=== PATIENT | male | born 1965 | race African-American/Black ===

== ENCOUNTER 2021-01-28 21:01 | Inpatient (IN) | payer MEDICAID, OTHER ==
[~2021-01-28] VITALS: Ht 172.7 cm; Wt 49.9 kg
[2021-01-28 21:59] LABS: HEMATOCRIT. 38.5 % (42.0-52.0); HEMOGLOBIN. 13.1 g/dL (14.0-18.0); MEAN CORPUSCULAR HEMOGLOBIN 30.5 pg (28.0-32.0); MEAN CORPUSCULAR VOLUME 89.5 fL (80.0-94.0); MEAN PLATELET VOLUME 5.3 fl (7.4-10.4); PLATELET 360 x1000/uL (130-400); RED CELL DISTRIBUTION WIDTH 15.6 % (11.6-14.6)
[2021-01-28 22:01] LABS: BG CARBOXYHEMOGLOBIN 0.9 % (0.5-1.5); BG DEOXYHEMOGLOBIN 4.4 % (0.0-5.0); BG FRACTION INSPIRED OXYGEN 21; BG HCO3 ACT 28.5 mmol/L (22.0-26.0); BG METHEMOGLOBIN 0.2 % (0.0-1.5); BG OXYGEN SATURATION 95.6 % (92.0-98.5); BG OXYHEMOGLOBIN 94.5 % (94.0-97.0); BG PCO2 46.9 mmHg (35.0-45.0); BG PH 7.402 (7.350-7.450); BG TOTAL HEMOGLOBIN 13.9 g/dL (12.0-18.0); BG VENT MODE ROOM AIR
[2021-01-28 22:06] LABS: CHLORIDE 85 mEq/L (98-107)
[2021-01-28 22:11] LABS: ETHANOL BLOOD < 10 mg/dL
[2021-01-28 22:14] LABS: CREATINE KINASE 313 IU/L (39-308)
[2021-01-28 22:35] LABS: PLATELET ESTIMATE NORMAL
[2021-01-29] VITALS (9 sets, daily range): BP systolic 114–198; BP diastolic 77–139
[2021-01-29] MEDS ORDERED: AMLODIPINE 5MG TABLET PO ONE (02:30)
[2021-01-29 03:17] LABS: CLARITY URINE CLOUDY (CLEAR); COLOR URINE YELLOW (YELLOW); KETONES URINE 1+ (NEGATIVE); LEUKOCYTE ESTERASE URINE NEGATIVE (NEGATIVE); NITRITE URINE NEGATIVE (NEGATIVE); OCCULT BLOOD URINE 2+ (NEGATIVE); PH URINE 7.5 (4.5-8.0); PROTEIN URINE 2+ (NEGATIVE); SPECIFIC GRAVITY URINE 1.012 (1.005-1.030)
[2021-01-29 03:28] LABS: *AMPHETAMINES SCREEN URINE NEGATIVE (NEGATIVE); *BARBITURATES SCREEN URINE NEGATIVE (NEGATIVE); *BENZODIAZEPINES SCREEN URINE NEGATIVE (NEGATIVE); *COCAINE SCREEN URINE NEGATIVE (NEGATIVE)
[2021-01-29 03:29] LABS: CANNABINOID URINE SCREEN NEGATIVE (NEGATIVE); METHADONE URINE SCREEN NEGATIVE (NEGATIVE); OPIATES URINE SCREEN NEGATIVE (NEGATIVE); PHENCYCLIDINE URINE SCREEN NEGATIVE (NEGATIVE)
[2021-01-29] MEDS ORDERED: CLONIDINE 0.1MG TABLET PO PRN (07:15)
[2021-01-29] MEDS: LABETALOL 5MG/ML SYR 20 MG/4 ML SYRINGE IV PRN ×2 (10:51→17:05)
[2021-01-29] MEDS ORDERED: ONDANSETRON HCL 4MG/2ML INJ IV PRN (12:00)
[2021-01-29] MEDS ORDERED: HYDROCODONE/ACETAMINOPHEN 5/325MG TABLET PO PRN (12:00)
[2021-01-29] MEDS ORDERED: IPRATROPIUM/ALBUTEROL 0.5-3(2.5)MG/3ML NEB HHN PRN (12:00)
[2021-01-29] MEDS ORDERED: ACETAMINOPHEN 325MG TABLET PO PRN ×2 (12:00)
[2021-01-29] MEDS ORDERED: LORAZEPAM 0.5MG TABLET PO PRN (12:00)
[2021-01-29 12:14] LABS: CHLORIDE 81 mEq/L (98-107)
[2021-01-29 12:19] LABS: PHOSPHORUS 3.7 mg/dL (2.5-4.9)
[2021-01-29 12:39] LABS: HEMATOCRIT. 41.9 % (42.0-52.0); MEAN CORPUSCULAR HEMOGLOBIN 30.3 pg (28.0-32.0); MEAN CORPUSCULAR VOLUME 90.3 fL (80.0-94.0); MEAN PLATELET VOLUME 5.5 fl (7.4-10.4); PLATELET 403 x1000/uL (130-400); RED BLOOD CELL COUNT 4.64 mill/uL (4.7-6.1); RED CELL DISTRIBUTION WIDTH 16.3 % (11.6-14.6)
[2021-01-29] MEDS: AMLODIPINE 5MG TABLET PO SCH (13:01)
[2021-01-29] MEDS: NICOTINE 14MG PATCH TD SCH (13:01)
[2021-01-29] MEDS ORDERED: PERMETHRIN 5% CREAM 60GM TOP NR (13:45)
[2021-01-29 14:20] LABS: FOLIC ACID (FOLATE) SERUM 14.7 ng/mL (>5.38)
[2021-01-29] MEDS: CLONIDINE 0.1MG TABLET PO PRN (17:59)
[2021-01-29 18:58] LABS: PLATELET ESTIMATE NORMAL
[2021-01-29 20:33] LABS: CHLORIDE 79 mEq/L (98-107)
[2021-01-29] MEDS: SODIUM CHLORIDE 0.9% 1,000 ML IV SCH (22:14)
[2021-01-30] VITALS (12 sets, daily range): BP systolic 130–207; BP diastolic 46–154
[2021-01-30] MEDS: LABETALOL 5MG/ML SYR 20 MG/4 ML SYRINGE IV PRN ×2 (03:39→18:35)
[2021-01-30 06:17] LABS: CHLORIDE 83 mEq/L (98-107)
[2021-01-30 06:23] LABS: HEMATOCRIT. 39.9 % (42.0-52.0); HEMOGLOBIN. 13.7 g/dL (14.0-18.0); MEAN CORPUSCULAR HEMOGLOBIN 30.5 pg (28.0-32.0); MEAN CORPUSCULAR VOLUME 88.9 fL (80.0-94.0); MEAN PLATELET VOLUME 5.8 fl (7.4-10.4); PHOSPHORUS 2.6 mg/dL (2.5-4.9); PLATELET 400 x1000/uL (130-400); RED BLOOD CELL COUNT 4.49 mill/uL (4.7-6.1)
[2021-01-30] MEDS: CLONIDINE 0.1MG TABLET PO PRN ×3 (09:01→23:15)
[2021-01-30] MEDS: AMLODIPINE 5MG TABLET PO SCH ×2 (09:01→09:31)
[2021-01-30] MEDS: NICOTINE 14MG PATCH TD SCH (09:02)
[2021-01-30] MEDS ORDERED: CLONIDINE 0.1MG TABLET PO NR (10:15)
[2021-01-30] MEDS: DEMECLOCYCLINE HCL 300MG TABLET PO SCH ×3 (12:32→21:51)
[2021-01-30 12:59] LABS: PLATELET ESTIMATE NORMAL
[2021-01-30 13:20] LABS: SODIUM URINE RANDOM 112 mEq/L
[2021-01-30] MEDS: HYDRALAZINE 20MG/ML VIAL IV PRN (15:22)
[2021-01-30] MEDS: SODIUM CHLORIDE 0.9% 1,000 ML IV SCH (17:30)
[2021-01-30] MEDS ORDERED: LABETALOL 5MG/ML SYR 20 MG/4 ML SYRINGE IV NR (18:30)
[2021-01-30] MEDS: LEVETIRACETAM 500MG PREMIX 100 ML IV SCH (18:53)
[2021-01-31] VITALS (10 sets, daily range): BP systolic 133–182; BP diastolic 82–124
[2021-01-31] MEDS: HYDRALAZINE 20MG/ML VIAL IV PRN ×3 (03:54→10:16)
[2021-01-31] MEDS: DEMECLOCYCLINE HCL 300MG TABLET PO SCH ×4 (06:55→22:49)
[2021-01-31 08:37] LABS: HEMATOCRIT. 43.8 % (42.0-52.0); MEAN CORPUSCULAR HEMOGLOBIN 29.1 pg (28.0-32.0); MEAN CORPUSCULAR VOLUME 90.9 fL (80.0-94.0); MEAN PLATELET VOLUME 5.6 fl (7.4-10.4); PLATELET 424 x1000/uL (130-400); RED BLOOD CELL COUNT 4.82 mill/uL (4.7-6.1); RED CELL DISTRIBUTION WIDTH 16.1 % (11.6-14.6)
[2021-01-31 08:43] LABS: CHLORIDE 87 mEq/L (98-107)
[2021-01-31 08:48] LABS: PHOSPHORUS 2.3 mg/dL (2.5-4.9)
[2021-01-31] MEDS: THIAMINE HCL 100MG TABLET PO SCH (09:01)
[2021-01-31] MEDS: LEVETIRACETAM 500MG PREMIX 100 ML IV SCH ×2 (09:01→22:50)
[2021-01-31] MEDS: FOLIC ACID 1MG TABLET PO SCH (09:01)
[2021-01-31] MEDS: AMLODIPINE 5MG TABLET PO SCH (09:01)
[2021-01-31] MEDS: MULTIVITAMINS,THER W-MINERALS TABLET PO SCH (09:01)
[2021-01-31] MEDS: NICOTINE 14MG PATCH TD SCH (09:02)
[2021-01-31] MEDS ORDERED: SODIUM PHOS,M-BASIC-D-BASIC 30 MM in DEXT 5% WATER 500 ML IV SCH (11:00)
[2021-01-31 14:48] LABS: PLATELET ESTIMATE INCREASED
[2021-01-31 19:10] LABS: CHLORIDE 88 mEq/L (98-107)
[2021-02-01] VITALS (7 sets, daily range): BP systolic 120–170; BP diastolic 92–122
[2021-02-01] MEDS: DEMECLOCYCLINE HCL 300MG TABLET PO SCH (07:01)
[2021-02-01 07:29] LABS: HEMATOCRIT. 42.4 % (42.0-52.0); HEMOGLOBIN. 14.3 g/dL (14.0-18.0); MEAN CORPUSCULAR HEMOGLOBIN 30.6 pg (28.0-32.0); MEAN CORPUSCULAR VOLUME 90.8 fL (80.0-94.0); MEAN PLATELET VOLUME 5.8 fl (7.4-10.4); PLATELET 412 x1000/uL (130-400); RED BLOOD CELL COUNT 4.67 mill/uL (4.7-6.1); RED CELL DISTRIBUTION WIDTH 16.4 % (11.6-14.6)
[2021-02-01 08:22] LABS: CHLORIDE 86 mEq/L (98-107)
[2021-02-01 08:37] LABS: PHOSPHORUS 3.1 mg/dL (2.5-4.9)
[2021-02-01] MEDS ORDERED: SODIUM CHLORIDE 3% 500 ML IV ONE (10:00)
[2021-02-01] MEDS: CLONIDINE HCL 0.1MG/24HR PATCH TD SCH (10:00)
[2021-02-01] MEDS: AMLODIPINE 5MG TABLET PO SCH (10:51)
[2021-02-01] MEDS: NICOTINE 14MG PATCH TD SCH (10:51)
[2021-02-01] MEDS: THIAMINE HCL 100MG TABLET PO SCH (10:52)
[2021-02-01] MEDS: MULTIVITAMINS,THER W-MINERALS TABLET PO SCH (10:52)
[2021-02-01] MEDS: FOLIC ACID 1MG TABLET PO SCH (10:52)
[2021-02-01] MEDS: LEVETIRACETAM 500MG PREMIX 100 ML IV SCH ×2 (11:02→21:00)
[2021-02-01 15:56] LABS: CHLORIDE 87 mEq/L (98-107)
[2021-02-01 22:01] LABS: PLATELET ESTIMATE SLIGHTLY INCREASED
[2021-02-02] VITALS (10 sets, daily range): BP systolic 136–179; BP diastolic 98–121
[2021-02-02] MEDS: LORAZEPAM 2MG/ML CPJ IV PRN ×2 (03:39→03:47)
[2021-02-02 05:58] LABS: CHLORIDE 92 mEq/L (98-107)
[2021-02-02 06:00] LABS: BASOPHILS % 0.3 % (0.0-2.0); EOSINOPHILS % 1.1 % (0.0-5.0); HEMATOCRIT. 37.8 % (42.0-52.0); HEMOGLOBIN. 12.6 g/dL (14.0-18.0); LYMPHOCYTES % 8.3 % (20.0-50.0); MEAN CORPUSCULAR HEMOGLOBIN 30.4 pg (28.0-32.0); MEAN CORPUSCULAR VOLUME 91.2 fL (80.0-94.0); MEAN PLATELET VOLUME 5.9 fl (7.4-10.4); MONOCYTES % 12.1 % (2.0-8.0); NEUTROPHILS % 78.2 % (40.0-76.0); PLATELET 404 x1000/uL (130-400); RED BLOOD CELL COUNT 4.15 mill/uL (4.7-6.1); RED CELL DISTRIBUTION WIDTH 15.9 % (11.6-14.6)
[2021-02-02 06:05] LABS: PHOSPHORUS 2.6 mg/dL (2.5-4.9)
[2021-02-02] MEDS: LEVETIRACETAM 500MG PREMIX 100 ML IV SCH ×2 (09:33→21:40)
[2021-02-02] MEDS: FOLIC ACID 1MG TABLET PO SCH (09:34)
[2021-02-02] MEDS: MULTIVITAMINS,THER W-MINERALS TABLET PO SCH (09:34)
[2021-02-02] MEDS: AMLODIPINE 5MG TABLET PO SCH (09:34)
[2021-02-02] MEDS: NICOTINE 14MG PATCH TD SCH (09:34)
[2021-02-02] MEDS: THIAMINE HCL 100MG TABLET PO SCH (09:34)
[2021-02-02] MEDS: SODIUM CHLORIDE 3% 500 ML IV SCH (11:17)
[2021-02-02] MEDS: CLONIDINE 0.1MG TABLET PO PRN (23:58)
[2021-02-03] VITALS (12 sets, daily range): BP systolic 125–171; BP diastolic 96–130
[2021-02-03] MEDS: SODIUM CHLORIDE 3% 500 ML IV SCH ×2 (03:04→20:09)
[2021-02-03 05:35] LABS: CHLORIDE 94 mEq/L (98-107)
[2021-02-03 05:49] LABS: PHOSPHORUS 2.2 mg/dL (2.5-4.9)
[2021-02-03 06:23] LABS: BASOPHILS % 0.4 % (0.0-2.0); EOSINOPHILS % 0.8 % (0.0-5.0); HEMATOCRIT. 36.2 % (42.0-52.0); LYMPHOCYTES % 10.4 % (20.0-50.0); MEAN CORPUSCULAR HEMOGLOBIN 29.9 pg (28.0-32.0); MEAN PLATELET VOLUME 5.8 fl (7.4-10.4); MONOCYTES % 12.2 % (2.0-8.0); NEUTROPHILS % 76.2 % (40.0-76.0); PLATELET 449 x1000/uL (130-400); RED BLOOD CELL COUNT 4.02 mill/uL (4.7-6.1); RED CELL DISTRIBUTION WIDTH 15.9 % (11.6-14.6)
[2021-02-03] MEDS: FOLIC ACID 1MG TABLET PO SCH ×2 (09:00→10:23)
[2021-02-03] MEDS: MULTIVITAMINS,THER W-MINERALS TABLET PO SCH ×2 (09:00→10:24)
[2021-02-03] MEDS: LEVETIRACETAM 500MG PREMIX 100 ML IV SCH ×2 (10:12→20:07)
[2021-02-03] MEDS: NICOTINE 14MG PATCH TD SCH (10:24)
[2021-02-03] MEDS: METOPROLOL TARTRATE 25MG TABLET PO SCH ×2 (10:25→20:06)
[2021-02-03] MEDS: THIAMINE HCL 100MG TABLET PO SCH (10:40)
[2021-02-03] MEDS ORDERED: SODIUM PHOS,M-BASIC-D-BASIC 15 MM in DEXT 5% WATER 245 ML IV NR (11:00)
[2021-02-03] MEDS: LORAZEPAM 2MG/ML CPJ IV PRN ×2 (15:50→23:26)
[2021-02-03 18:35] LABS: CHLORIDE 97 mEq/L (98-107)
[2021-02-03] MEDS: AMLODIPINE 5MG TABLET PO SCH (20:06)
[2021-02-03] MEDS: HYDRALAZINE 20MG/ML VIAL IV PRN (23:26)
[2021-02-04] VITALS (17 sets, daily range): BP systolic 129–159; BP diastolic 56–106
[2021-02-04 06:50] LABS: CHLORIDE 97 mEq/L (98-107)
[2021-02-04 06:58] LABS: BASOPHILS % 0.4 % (0.0-2.0); EOSINOPHILS % 1.3 % (0.0-5.0); HEMATOCRIT. 31.1 % (42.0-52.0); HEMOGLOBIN. 10.7 g/dL (14.0-18.0); LYMPHOCYTES % 9.6 % (20.0-50.0); MEAN CORPUSCULAR VOLUME 90.1 fL (80.0-94.0); MEAN PLATELET VOLUME 5.7 fl (7.4-10.4); MONOCYTES % 12.9 % (2.0-8.0); NEUTROPHILS % 75.8 % (40.0-76.0); PLATELET 384 x1000/uL (130-400); RED BLOOD CELL COUNT 3.45 mill/uL (4.7-6.1); RED CELL DISTRIBUTION WIDTH 15.9 % (11.6-14.6)
[2021-02-04] MEDS: THIAMINE HCL 100MG TABLET PO SCH (09:11)
[2021-02-04] MEDS: FOLIC ACID 1MG TABLET PO SCH (09:11)
[2021-02-04] MEDS: METOPROLOL TARTRATE 25MG TABLET PO SCH (09:11)
[2021-02-04] MEDS: MULTIVITAMINS,THER W-MINERALS TABLET PO SCH (09:11)
[2021-02-04] MEDS: LEVETIRACETAM 500MG PREMIX 100 ML IV SCH (09:12)
[2021-02-04] MEDS: NICOTINE 14MG PATCH TD SCH (09:12)
[2021-02-04] MEDS: AMLODIPINE 5MG TABLET PO SCH ×2 (09:12→20:12)
[2021-02-04] MEDS ORDERED: POTASSIUM CHLORIDE 20MEQ TABLET SR PO NR (10:30)
[2021-02-04] MEDS ORDERED: POTASSIUM PHOS,M-BASIC-D-BASIC 20 MMOL in SODIUM CHLORIDE 0.9% 250 ML IV SCH (13:00)
[2021-02-04] MEDS: SODIUM CHLORIDE 3% 500 ML IV SCH (14:36)
[2021-02-04] MEDS: LEVETIRACETAM 500MG TABLET PO SCH (20:12)
[2021-02-04] MEDS: METOPROLOL TARTRATE 50MG TABLET PO SCH (20:12)
[2021-02-05] VITALS (12 sets, daily range): BP systolic 125–155; BP diastolic 64–105
[2021-02-05 06:51] LABS: BASOPHILS % 0.5 % (0.0-2.0); EOSINOPHILS % 2.4 % (0.0-5.0); HEMATOCRIT. 31.3 % (42.0-52.0); HEMOGLOBIN. 10.6 g/dL (14.0-18.0); LYMPHOCYTES % 11.5 % (20.0-50.0); MEAN CORPUSCULAR HEMOGLOBIN 30.3 pg (28.0-32.0); MEAN CORPUSCULAR VOLUME 89.8 fL (80.0-94.0); MEAN PLATELET VOLUME 5.8 fl (7.4-10.4); MONOCYTES % 11.8 % (2.0-8.0); NEUTROPHILS % 73.8 % (40.0-76.0); PLATELET 435 x1000/uL (130-400); RED BLOOD CELL COUNT 3.48 mill/uL (4.7-6.1); RED CELL DISTRIBUTION WIDTH 16.1 % (11.6-14.6)
[2021-02-05 06:52] LABS: CHLORIDE 100 mEq/L (98-107)
[2021-02-05 07:04] LABS: PHOSPHORUS 2.9 mg/dL (2.5-4.9)
[2021-02-05] MEDS: MULTIVITAMINS,THER W-MINERALS TABLET PO SCH (09:19)
[2021-02-05] MEDS: THIAMINE HCL 100MG TABLET PO SCH (09:19)
[2021-02-05] MEDS: NICOTINE 14MG PATCH TD SCH (09:19)
[2021-02-05] MEDS: METOPROLOL TARTRATE 50MG TABLET PO SCH ×2 (09:20→20:06)
[2021-02-05] MEDS: FOLIC ACID 1MG TABLET PO SCH (09:20)
[2021-02-05] MEDS: LEVETIRACETAM 500MG TABLET PO SCH ×2 (09:20→20:06)
[2021-02-05] MEDS: AMLODIPINE 5MG TABLET PO SCH ×2 (09:21→20:07)
[2021-02-05] MEDS: HYDRALAZINE HCL 25MG TABLET PO SCH ×2 (13:57→20:07)
[2021-02-06] VITALS (15 sets, daily range): BP systolic 99–160; BP diastolic 64–109
[2021-02-06 06:31] LABS: BASOPHILS % 0.3 % (0.0-2.0); EOSINOPHILS % 1.7 % (0.0-5.0); HEMATOCRIT. 34.3 % (42.0-52.0); HEMOGLOBIN. 11.5 g/dL (14.0-18.0); MEAN CORPUSCULAR HEMOGLOBIN 30.2 pg (28.0-32.0); MEAN CORPUSCULAR VOLUME 89.8 fL (80.0-94.0); MONOCYTES % 9.9 % (2.0-8.0); NEUTROPHILS % 78.1 % (40.0-76.0); PLATELET 488 x1000/uL (130-400); RED BLOOD CELL COUNT 3.82 mill/uL (4.7-6.1); RED CELL DISTRIBUTION WIDTH 16.2 % (11.6-14.6)
[2021-02-06 07:09] LABS: CHLORIDE 94 mEq/L (98-107)
[2021-02-06 07:19] LABS: PHOSPHORUS 2.7 mg/dL (2.5-4.9)
[2021-02-06] MEDS: MULTIVITAMINS,THER W-MINERALS TABLET PO SCH (08:30)
[2021-02-06] MEDS: AMLODIPINE 5MG TABLET PO SCH ×2 (08:30→21:12)
[2021-02-06] MEDS: LEVETIRACETAM 500MG TABLET PO SCH ×2 (08:30→21:11)
[2021-02-06] MEDS: NICOTINE 14MG PATCH TD SCH (08:30)
[2021-02-06] MEDS: THIAMINE HCL 100MG TABLET PO SCH (08:30)
[2021-02-06] MEDS: HYDRALAZINE HCL 25MG TABLET PO SCH ×2 (08:31→21:11)
[2021-02-06] MEDS: METOPROLOL TARTRATE 50MG TABLET PO SCH ×2 (08:31→21:11)
[2021-02-06] MEDS: FOLIC ACID 1MG TABLET PO SCH (08:32)
[2021-02-06] MEDS: SODIUM CHLORIDE 1000MG TABLET PO SCH ×2 (09:50→21:11)
[2021-02-07] VITALS (15 sets, daily range): BP systolic 91–181; BP diastolic 40–146
[2021-02-07] MEDS: LABETALOL 5MG/ML SYR 20 MG/4 ML SYRINGE IV PRN (04:23)
[2021-02-07 07:07] LABS: BASOPHILS % 0.7 % (0.0-2.0); EOSINOPHILS % 2.2 % (0.0-5.0); HEMOGLOBIN. 10.3 g/dL (14.0-18.0); LYMPHOCYTES % 7.5 % (20.0-50.0); MEAN CORPUSCULAR HEMOGLOBIN 30.9 pg (28.0-32.0); MEAN CORPUSCULAR VOLUME 90.1 fL (80.0-94.0); MEAN PLATELET VOLUME 5.8 fl (7.4-10.4); MONOCYTES % 10.2 % (2.0-8.0); NEUTROPHILS % 79.4 % (40.0-76.0); PLATELET 454 x1000/uL (130-400); RED BLOOD CELL COUNT 3.33 mill/uL (4.7-6.1)
[2021-02-07 07:23] LABS: CHLORIDE 94 mEq/L (98-107)
[2021-02-07 07:30] LABS: PHOSPHORUS 2.8 mg/dL (2.5-4.9)
[2021-02-07] MEDS ORDERED: SODIUM BICARBONATE 8.4% 1 MEQ/ML 50ML SYR IV ONE (07:57)
[2021-02-07] MEDS ORDERED: EPINEPHRINE 0.1MG/ML (1:10,000) 10ML SYR ONE (07:57)
[2021-02-07] MEDS: NICOTINE 14MG PATCH TD SCH (08:28)
[2021-02-07] MEDS: LEVETIRACETAM 500MG TABLET PO SCH ×2 (08:28→21:50)
[2021-02-07] MEDS: HYDRALAZINE HCL 25MG TABLET PO SCH ×2 (08:29→21:51)
[2021-02-07] MEDS: THIAMINE HCL 100MG TABLET PO SCH (08:29)
[2021-02-07] MEDS: METOPROLOL TARTRATE 50MG TABLET PO SCH ×2 (08:29→21:50)
[2021-02-07] MEDS: AMLODIPINE 5MG TABLET PO SCH ×2 (08:29→21:51)
[2021-02-07] MEDS: FOLIC ACID 1MG TABLET PO SCH (08:30)
[2021-02-07] MEDS: SODIUM CHLORIDE 1000MG TABLET PO SCH ×2 (08:30→21:50)
[2021-02-07] MEDS: MULTIVITAMINS,THER W-MINERALS TABLET PO SCH (08:34)
[2021-02-07] MEDS ORDERED: LORAZEPAM 2MG/ML CPJ IV PRN (17:00)
[2021-02-07 23:51] LABS: BG BASE EXCESS 0.7 mmol/L (-2.0-2.0); BG CARBOXYHEMOGLOBIN 0.2 % (0.5-1.5); BG DEOXYHEMOGLOBIN 0.7 % (0.0-5.0); BG FRACTION INSPIRED OXYGEN 50; BG HCO3 ACT 25.7 mmol/L (22.0-26.0); BG METHEMOGLOBIN 0.3 % (0.0-1.5); BG OXYGEN SATURATION 99.3 % (92.0-98.5); BG OXYHEMOGLOBIN 98.8 % (94.0-97.0); BG PCO2 43.3 mmHg (35.0-45.0); BG PH 7.392 (7.350-7.450); BG PO2 289.6 mmHg (75.0-100.0); BG TOTAL HEMOGLOBIN 10.2 g/dL (12.0-18.0); BG VENT MODE VENT - AC
[2021-02-08] VITALS (95 sets, daily range): BP systolic 49–172; BP diastolic 24–131
[2021-02-08] MEDS ORDERED: MIDAZOLAM 100MG/100ML PMX 100 ML IV PRN (00:15)
[2021-02-08] MEDS ORDERED: FENTANYL CITRATE/PF 1,000 MCG in SODIUM CHLORIDE 0.9% 80 ML IV PRN (00:15)
[2021-02-08] MEDS ORDERED: PHENYLEPHRINE 100 MG in DEXT 5% WATER 240 ML IV PRN (00:15)
[2021-02-08] MEDS ORDERED: VASOPRESSIN 20 UNIT in SODIUM CHLORIDE 0.9% 99 ML IV PRN (00:15)
[2021-02-08] MEDS ORDERED: MIDAZOLAM HCL 100 MG in SODIUM CHLORIDE 0.9% 100 ML IV PRN (00:30)
[2021-02-08] MEDS ORDERED: FENTANYL CITRATE 2,500 MCG in SODIUM CHLORIDE 0.9% 200 ML IV PRN (00:30)
[2021-02-08] MEDS: NOREPINEPHRINE 32 MG in DEXT 5% WATER 218 ML IV PRN ×2 (03:00→18:35)
[2021-02-08 05:40] LABS: BASOPHILS % 0.3 % (0.0-2.0); EOSINOPHILS % 1.2 % (0.0-5.0); HEMOGLOBIN. 10.2 g/dL (14.0-18.0); LYMPHOCYTES % 7.9 % (20.0-50.0); MEAN CORPUSCULAR HEMOGLOBIN 29.9 pg (28.0-32.0); MEAN CORPUSCULAR VOLUME 90.5 fL (80.0-94.0); MEAN PLATELET VOLUME 5.9 fl (7.4-10.4); MONOCYTES % 3.7 % (2.0-8.0); NEUTROPHILS % 86.9 % (40.0-76.0); PLATELET 444 x1000/uL (130-400); RED BLOOD CELL COUNT 3.42 mill/uL (4.7-6.1); RED CELL DISTRIBUTION WIDTH 16.3 % (11.6-14.6)
[2021-02-08 05:46] LABS: CHLORIDE 104 mEq/L (98-107)
[2021-02-08 05:51] LABS: PHOSPHORUS 2.2 mg/dL (2.5-4.9)
[2021-02-08] MEDS ORDERED: PERMETHRIN 5% CREAM 60GM TOP SCH (09:00)
[2021-02-08] MEDS: HYDRALAZINE HCL 25MG TABLET PO SCH ×2 (09:00→20:21)
[2021-02-08] MEDS: AMLODIPINE 5MG TABLET PO SCH ×2 (09:00→20:21)
[2021-02-08] MEDS: CLONIDINE HCL 0.1MG/24HR PATCH TD SCH (09:00)
[2021-02-08 09:01] LABS: BG BASE EXCESS 3.6 mmol/L (-2.0-2.0); BG CARBOXYHEMOGLOBIN 0.2 % (0.5-1.5); BG DEOXYHEMOGLOBIN 1.1 % (0.0-5.0); BG FRACTION INSPIRED OXYGEN 50; BG HCO3 ACT 27.4 mmol/L (22.0-26.0); BG METHEMOGLOBIN 0.3 % (0.0-1.5); BG OXYGEN SATURATION 98.9 % (92.0-98.5); BG OXYHEMOGLOBIN 98.4 % (94.0-97.0); BG PCO2 38.2 mmHg (35.0-45.0); BG PH 7.473 (7.350-7.450); BG SAMPLE SITE ALINE; BG TOTAL HEMOGLOBIN 11.1 g/dL (12.0-18.0); BG TOTAL RESPIRATORY RATE 14 b/min; BG VENT MODE VENT - AC
[2021-02-08] MEDS ORDERED: DOPAMINE 800MG PREMIX (DOUBLE) 250 ML IV PRN (09:15)
[2021-02-08] MEDS ORDERED: LIDOCAINE HCL 1% 20ML VIAL (Pyxis) INJ ONE (10:28)
[2021-02-08] MEDS: SODIUM CHLORIDE 1000MG TABLET PO SCH ×2 (11:44→20:21)
[2021-02-08] MEDS: FOLIC ACID 1MG TABLET PO SCH (11:44)
[2021-02-08] MEDS: MULTIVITAMINS,THER W-MINERALS TABLET PO SCH (11:44)
[2021-02-08] MEDS: THIAMINE HCL 100MG TABLET PO SCH (11:44)
[2021-02-08] MEDS: NICOTINE 14MG PATCH TD SCH (11:45)
[2021-02-08] MEDS: LEVETIRACETAM 500MG TABLET PO SCH ×2 (11:45→20:20)
[2021-02-08] MEDS ORDERED: DEXTROSE 50% WATER 50ML SYRINGE IV PRN (15:00)
[2021-02-08] MEDS: BLOOD SUGAR DIAGNOSTIC STRIP TEST SCH ×2 (15:56→20:21)
[2021-02-08] MEDS: FAMOTIDINE 20MG/2ML VIAL IV SCH (20:21)
[2021-02-09] VITALS (86 sets, daily range): BP systolic 94–141; BP diastolic 67–93
[2021-02-09] MEDS: BLOOD SUGAR DIAGNOSTIC STRIP TEST SCH ×4 (03:22→21:22)
[2021-02-09 05:50] LABS: HEMATOCRIT. 32.2 % (42.0-52.0); HEMOGLOBIN. 10.4 g/dL (14.0-18.0); MEAN CORPUSCULAR HEMOGLOBIN 29.2 pg (28.0-32.0); MEAN CORPUSCULAR VOLUME 90.7 fL (80.0-94.0); MEAN PLATELET VOLUME 5.8 fl (7.4-10.4); PLATELET 409 x1000/uL (130-400); RED BLOOD CELL COUNT 3.55 mill/uL (4.7-6.1); RED CELL DISTRIBUTION WIDTH 16.3 % (11.6-14.6)
[2021-02-09 05:59] LABS: CHLORIDE 105 mEq/L (98-107)
[2021-02-09 06:09] LABS: PHOSPHORUS 4.3 mg/dL (2.5-4.9)
[2021-02-09] MEDS: FAMOTIDINE 20MG/2ML VIAL IV SCH ×2 (09:08→21:24)
[2021-02-09] MEDS: LEVETIRACETAM 500MG TABLET PO SCH ×2 (09:08→21:25)
[2021-02-09] MEDS: AMLODIPINE 5MG TABLET PO SCH ×2 (09:08→21:00)
[2021-02-09] MEDS: THIAMINE HCL 100MG TABLET PO SCH (09:08)
[2021-02-09] MEDS: FOLIC ACID 1MG TABLET PO SCH (09:08)
[2021-02-09] MEDS: SODIUM CHLORIDE 1000MG TABLET PO SCH ×2 (09:08→21:24)
[2021-02-09] MEDS: HYDRALAZINE HCL 25MG TABLET PO SCH ×2 (09:08→21:00)
[2021-02-09] MEDS: MULTIVITAMINS,THER W-MINERALS TABLET PO SCH (09:08)
[2021-02-09] MEDS: DEXT 5%/0.9% NACL 1,000 ML IV SCH (09:10)
[2021-02-09] MEDS: NICOTINE 14MG PATCH TD SCH (09:10)
[2021-02-09 11:19] LABS: BG BASE EXCESS 2.8 mmol/L (-2.0-2.0); BG CARBOXYHEMOGLOBIN 0.3 % (0.5-1.5); BG DEOXYHEMOGLOBIN 1.3 % (0.0-5.0); BG FRACTION INSPIRED OXYGEN 35; BG HCO3 ACT 26.4 mmol/L (22.0-26.0); BG METHEMOGLOBIN 0.2 % (0.0-1.5); BG OXYGEN SATURATION 98.7 % (92.0-98.5); BG OXYHEMOGLOBIN 98.2 % (94.0-97.0); BG PCO2 36.7 mmHg (35.0-45.0); BG PH 7.474 (7.350-7.450); BG PO2 153.1 mmHg (75.0-100.0); BG SAMPLE SITE LEFT RADIAL; BG TOTAL HEMOGLOBIN 10.5 g/dL (12.0-18.0); BG VENT MODE VENT - AC
[2021-02-09 11:37] LABS: PLATELET ESTIMATE SLIGHTLY INCREASED
[2021-02-09] MEDS: NOREPINEPHRINE 32 MG in DEXT 5% WATER 218 ML IV PRN (17:55)
[2021-02-09] MEDS: IPRATROPIUM/ALBUTEROL 0.5-3(2.5)MG/3ML NEB HHN SCH (20:38)
[2021-02-09] MEDS ORDERED: IOHEXOL-350 100 ML BOTTLE ONE (23:35)
[2021-02-10] VITALS (82 sets, daily range): BP systolic 87–129; BP diastolic 58–93
[2021-02-10] MEDS ORDERED: HEPARIN 25,000 UNITS PREMIX 250 ML IV SCH ×2 (00:30→01:30)
[2021-02-10] MEDS ORDERED: HEPARIN BOLUS PRN aPTT 37-44 IV (01:30)
[2021-02-10] MEDS ORDERED: HEPARIN BOLUS PRN aPTT <36 IV (01:30)
[2021-02-10] MEDS ORDERED: HEPARIN 80 UNITS/KG BOLUS IV SCH (01:30)
[2021-02-10] MEDS: IPRATROPIUM/ALBUTEROL 0.5-3(2.5)MG/3ML NEB HHN SCH ×4 (02:23→20:33)
[2021-02-10] MEDS: BLOOD SUGAR DIAGNOSTIC STRIP TEST SCH ×4 (03:11→21:06)
[2021-02-10] MEDS: DEXT 5%/0.9% NACL 1,000 ML IV SCH (04:16)
[2021-02-10 06:02] LABS: HEMATOCRIT. 28.6 % (42.0-52.0); HEMOGLOBIN. 9.5 g/dL (14.0-18.0); MEAN CORPUSCULAR HEMOGLOBIN 30.2 pg (28.0-32.0); MEAN PLATELET VOLUME 6.1 fl (7.4-10.4); PLATELET 357 x1000/uL (130-400); RED BLOOD CELL COUNT 3.14 mill/uL (4.7-6.1); RED CELL DISTRIBUTION WIDTH 16.8 % (11.6-14.6)
[2021-02-10 06:04] LABS: CHLORIDE 105 mEq/L (98-107)
[2021-02-10 06:11] LABS: PHOSPHORUS 2.2 mg/dL (2.5-4.9)
[2021-02-10 08:03] LABS: BG BASE EXCESS 2.5 mmol/L (-2.0-2.0); BG CARBOXYHEMOGLOBIN 0.2 % (0.5-1.5); BG DEOXYHEMOGLOBIN 1.5 % (0.0-5.0); BG FRACTION INSPIRED OXYGEN 30; BG HCO3 ACT 26.7 mmol/L (22.0-26.0); BG OXYGEN SATURATION 98.5 % (92.0-98.5); BG OXYHEMOGLOBIN 98.3 % (94.0-97.0); BG PCO2 39.6 mmHg (35.0-45.0); BG PH 7.447 (7.350-7.450); BG PO2 135.9 mmHg (75.0-100.0); BG SAMPLE SITE RIGHT RADIAL; BG TOTAL HEMOGLOBIN 9.8 g/dL (12.0-18.0); BG TOTAL RESPIRATORY RATE 16 b/min; BG VENT MODE VENT - AC
[2021-02-10] MEDS: FAMOTIDINE 20MG/2ML VIAL IV SCH ×2 (08:26→21:05)
[2021-02-10] MEDS: MULTIVITAMINS,THER W-MINERALS TABLET PO SCH (08:26)
[2021-02-10] MEDS: FOLIC ACID 1MG TABLET PO SCH (08:26)
[2021-02-10] MEDS: LEVETIRACETAM 500MG TABLET PO SCH ×2 (08:26→21:05)
[2021-02-10] MEDS: NICOTINE 14MG PATCH TD SCH (08:26)
[2021-02-10] MEDS: SODIUM CHLORIDE 1000MG TABLET PO SCH (08:26)
[2021-02-10] MEDS: THIAMINE HCL 100MG TABLET PO SCH (08:26)
[2021-02-10] MEDS: HYDRALAZINE HCL 25MG TABLET PO SCH ×2 (08:27→21:00)
[2021-02-10] MEDS: AMLODIPINE 5MG TABLET PO SCH ×2 (08:29→21:00)
[2021-02-10] MEDS ORDERED: POTASSIUM PHOS,M-BASIC-D-BASIC 15 MMOL in DEXT 5% WATER 245 ML IV NR (10:00)
[2021-02-10 10:48] LABS: PLATELET ESTIMATE NORMAL
[2021-02-11] VITALS (90 sets, daily range): BP systolic 87–124; BP diastolic 57–90
[2021-02-11] MEDS: DEXT 5%/0.9% NACL 1,000 ML IV SCH ×2 (02:08→20:57)
[2021-02-11] MEDS: IPRATROPIUM/ALBUTEROL 0.5-3(2.5)MG/3ML NEB HHN SCH ×3 (02:48→14:17)
[2021-02-11] MEDS: BLOOD SUGAR DIAGNOSTIC STRIP TEST SCH ×2 (03:05→09:00)
[2021-02-11 03:17] LABS: BASOPHILS % 0.2 % (0.0-2.0); CHLORIDE 107 mEq/L (98-107); EOSINOPHILS % 1.5 % (0.0-5.0); HEMATOCRIT. 26.3 % (42.0-52.0); HEMOGLOBIN. 8.6 g/dL (14.0-18.0); LYMPHOCYTES % 7.8 % (20.0-50.0); MEAN CORPUSCULAR HEMOGLOBIN 29.9 pg (28.0-32.0); MEAN CORPUSCULAR VOLUME 91.5 fL (80.0-94.0); MEAN PLATELET VOLUME 5.9 fl (7.4-10.4); NEUTROPHILS % 83.5 % (40.0-76.0); PLATELET 278 x1000/uL (130-400); RED BLOOD CELL COUNT 2.87 mill/uL (4.7-6.1); RED CELL DISTRIBUTION WIDTH 17.3 % (11.6-14.6)
[2021-02-11 03:23] LABS: PHOSPHORUS 2.9 mg/dL (2.5-4.9)
[2021-02-11] MEDS: FAMOTIDINE 20MG/2ML VIAL IV SCH ×2 (10:09→21:17)
[2021-02-11] MEDS: HYDRALAZINE HCL 25MG TABLET PO SCH ×2 (10:09→21:16)
[2021-02-11] MEDS: FOLIC ACID 1MG TABLET PO SCH (10:10)
[2021-02-11] MEDS: NICOTINE 14MG PATCH TD SCH (10:10)
[2021-02-11] MEDS: THIAMINE HCL 100MG TABLET PO SCH (10:10)
[2021-02-11] MEDS: LEVETIRACETAM 500MG TABLET PO SCH ×2 (10:10→21:16)
[2021-02-11] MEDS: MULTIVITAMINS,THER W-MINERALS TABLET PO SCH (10:10)
[2021-02-11] MEDS: AMLODIPINE 5MG TABLET PO SCH ×2 (10:10→21:16)
[2021-02-11] MEDS: ENOXAPARIN 60MG/0.6ML SYR SUBCUT SCH (21:17)
[2021-02-12] VITALS (100 sets, daily range): BP systolic 88–171; BP diastolic 57–115
[2021-02-12] MEDS: IPRATROPIUM/ALBUTEROL 0.5-3(2.5)MG/3ML NEB HHN SCH ×4 (02:00→20:31)
[2021-02-12 05:27] LABS: HEMOGLOBIN. 8.2 g/dL (14.0-18.0); MEAN CORPUSCULAR HEMOGLOBIN 29.9 pg (28.0-32.0); MEAN CORPUSCULAR VOLUME 90.9 fL (80.0-94.0); MEAN PLATELET VOLUME 6.3 fl (7.4-10.4); PLATELET 304 x1000/uL (130-400); RED BLOOD CELL COUNT 2.74 mill/uL (4.7-6.1); RED CELL DISTRIBUTION WIDTH 17.1 % (11.6-14.6)
[2021-02-12 05:36] LABS: CHLORIDE 107 mEq/L (98-107)
[2021-02-12 05:43] LABS: PHOSPHORUS 2.6 mg/dL (2.5-4.9)
[2021-02-12] MEDS: MULTIVITAMINS,THER W-MINERALS TABLET PO SCH (09:00)
[2021-02-12] MEDS: HYDRALAZINE HCL 25MG TABLET PO SCH ×3 (09:00→20:56)
[2021-02-12] MEDS: FOLIC ACID 1MG TABLET PO SCH (09:00)
[2021-02-12] MEDS: LEVETIRACETAM 500MG TABLET PO SCH ×2 (09:00→20:34)
[2021-02-12] MEDS: AMLODIPINE 5MG TABLET PO SCH ×3 (09:00→20:56)
[2021-02-12] MEDS: THIAMINE HCL 100MG TABLET PO SCH (09:00)
[2021-02-12] MEDS: ENOXAPARIN 60MG/0.6ML SYR SUBCUT SCH ×2 (09:01→20:36)
[2021-02-12] MEDS: FAMOTIDINE 20MG/2ML VIAL IV SCH ×2 (09:01→20:34)
[2021-02-12] MEDS: NICOTINE 14MG PATCH TD SCH (09:01)
[2021-02-12] MEDS: DOCUSATE SODIUM 100MG CAPSULE PO PRN (09:16)
[2021-02-12 13:58] LABS: PLATELET ESTIMATE NORMAL
[2021-02-13] VITALS (48 sets, daily range): BP systolic 96–132; BP diastolic 64–90
[2021-02-13] MEDS: IPRATROPIUM/ALBUTEROL 0.5-3(2.5)MG/3ML NEB HHN SCH ×4 (00:24→20:15)
[2021-02-13] MEDS: DOCUSATE SODIUM 100MG CAPSULE PO PRN (01:53)
[2021-02-13 05:37] LABS: HEMATOCRIT. 23.9 % (42.0-52.0); HEMOGLOBIN. 8.1 g/dL (14.0-18.0); MEAN CORPUSCULAR HEMOGLOBIN 30.8 pg (28.0-32.0); MEAN CORPUSCULAR VOLUME 91.2 fL (80.0-94.0); MEAN PLATELET VOLUME 6.2 fl (7.4-10.4); PLATELET 306 x1000/uL (130-400); RED BLOOD CELL COUNT 2.62 mill/uL (4.7-6.1); RED CELL DISTRIBUTION WIDTH 16.9 % (11.6-14.6)
[2021-02-13 05:39] LABS: CHLORIDE 107 mEq/L (98-107)
[2021-02-13 05:46] LABS: PHOSPHORUS 3.3 mg/dL (2.5-4.9)
[2021-02-13] MEDS: MULTIVITAMINS,THER W-MINERALS TABLET PO SCH (08:19)
[2021-02-13] MEDS: FAMOTIDINE 20MG/2ML VIAL IV SCH ×2 (08:19→20:40)
[2021-02-13] MEDS: NICOTINE 14MG PATCH TD SCH (08:19)
[2021-02-13] MEDS: HYDRALAZINE HCL 25MG TABLET PO SCH ×2 (08:19→20:40)
[2021-02-13] MEDS: THIAMINE HCL 100MG TABLET PO SCH (08:20)
[2021-02-13] MEDS: AMLODIPINE 5MG TABLET PO SCH ×2 (08:20→20:40)
[2021-02-13] MEDS: FOLIC ACID 1MG TABLET PO SCH (08:20)
[2021-02-13] MEDS: LEVETIRACETAM 500MG TABLET PO SCH ×2 (08:20→20:40)
[2021-02-13] MEDS: ENOXAPARIN 60MG/0.6ML SYR SUBCUT SCH ×2 (08:21→20:42)
[2021-02-13 08:56] LABS: BG BASE EXCESS 7.6 mmol/L (-2.0-2.0); BG CARBOXYHEMOGLOBIN 0.2 % (0.5-1.5); BG DEOXYHEMOGLOBIN 1.6 % (0.0-5.0); BG FRACTION INSPIRED OXYGEN 30; BG HCO3 ACT 32.5 mmol/L (22.0-26.0); BG METHEMOGLOBIN 0.2 % (0.0-1.5); BG OXYGEN SATURATION 98.4 % (92.0-98.5); BG PCO2 47.9 mmHg (35.0-45.0); BG PH 7.449 (7.350-7.450); BG PO2 135.9 mmHg (75.0-100.0); BG SAMPLE SITE ALINE; BG TOTAL HEMOGLOBIN 8.4 g/dL (12.0-18.0); BG VENT MODE VENT - AC
[2021-02-13 11:15] LABS: PLATELET ESTIMATE NORMAL
[2021-02-14] VITALS (24 sets, daily range): BP systolic 125–154; BP diastolic 88–112
[2021-02-14] MEDS: IPRATROPIUM/ALBUTEROL 0.5-3(2.5)MG/3ML NEB HHN SCH ×4 (01:56→20:04)
[2021-02-14 07:52] LABS: BG BASE EXCESS 5.4 mmol/L (-2.0-2.0); BG CARBOXYHEMOGLOBIN 0.1 % (0.5-1.5); BG FRACTION INSPIRED OXYGEN 30; BG HCO3 ACT 29.8 mmol/L (22.0-26.0); BG METHEMOGLOBIN 0.4 % (0.0-1.5); BG OXYHEMOGLOBIN 98.5 % (94.0-97.0); BG PCO2 43.5 mmHg (35.0-45.0); BG PH 7.454 (7.350-7.450); BG PO2 148.5 mmHg (75.0-100.0); BG SAMPLE SITE LEFT RADIAL; BG TOTAL HEMOGLOBIN 8.8 g/dL (12.0-18.0); BG VENT MODE VENT - AC
[2021-02-14] MEDS: AMLODIPINE 5MG TABLET PO SCH ×2 (08:57→20:45)
[2021-02-14] MEDS: NICOTINE 14MG PATCH TD SCH (08:58)
[2021-02-14] MEDS: MULTIVITAMINS,THER W-MINERALS TABLET PO SCH (08:59)
[2021-02-14] MEDS: LEVETIRACETAM 500MG TABLET PO SCH ×2 (08:59→20:45)
[2021-02-14] MEDS: ENOXAPARIN 60MG/0.6ML SYR SUBCUT SCH ×2 (08:59→20:46)
[2021-02-14] MEDS: THIAMINE HCL 100MG TABLET PO SCH (09:00)
[2021-02-14] MEDS: FAMOTIDINE 20MG/2ML VIAL IV SCH ×2 (09:00→20:45)
[2021-02-14] MEDS: HYDRALAZINE HCL 25MG TABLET PO SCH ×2 (09:00→20:45)
[2021-02-14] MEDS: FOLIC ACID 1MG TABLET PO SCH (09:00)
[2021-02-15] VITALS (24 sets, daily range): BP systolic 131–169; BP diastolic 88–117
[2021-02-15] MEDS: IPRATROPIUM/ALBUTEROL 0.5-3(2.5)MG/3ML NEB HHN SCH ×4 (02:06→20:39)
[2021-02-15 05:32] LABS: BASOPHILS % 0.4 % (0.0-2.0); EOSINOPHILS % 1.3 % (0.0-5.0); HEMATOCRIT. 25.6 % (42.0-52.0); HEMOGLOBIN. 8.5 g/dL (14.0-18.0); LYMPHOCYTES % 8.7 % (20.0-50.0); MEAN CORPUSCULAR HEMOGLOBIN 30.1 pg (28.0-32.0); MEAN CORPUSCULAR VOLUME 90.9 fL (80.0-94.0); MEAN PLATELET VOLUME 6.4 fl (7.4-10.4); MONOCYTES % 10.7 % (2.0-8.0); NEUTROPHILS % 78.9 % (40.0-76.0); PLATELET 327 x1000/uL (130-400); RED BLOOD CELL COUNT 2.82 mill/uL (4.7-6.1); RED CELL DISTRIBUTION WIDTH 17.1 % (11.6-14.6)
[2021-02-15 05:36] LABS: CHLORIDE 99 mEq/L (98-107)
[2021-02-15] MEDS: FAMOTIDINE 20MG/2ML VIAL IV SCH ×2 (08:11→21:04)
[2021-02-15] MEDS: AMLODIPINE 5MG TABLET PO SCH ×2 (08:12→21:04)
[2021-02-15] MEDS: FOLIC ACID 1MG TABLET PO SCH (08:12)
[2021-02-15] MEDS: THIAMINE HCL 100MG TABLET PO SCH (08:12)
[2021-02-15] MEDS: MULTIVITAMINS,THER W-MINERALS TABLET PO SCH (08:12)
[2021-02-15] MEDS: HYDRALAZINE HCL 25MG TABLET PO SCH ×2 (08:13→21:04)
[2021-02-15] MEDS: NICOTINE 14MG PATCH TD SCH (08:13)
[2021-02-15] MEDS: LEVETIRACETAM 500MG TABLET PO SCH ×2 (08:13→21:04)
[2021-02-15] MEDS: ENOXAPARIN 60MG/0.6ML SYR SUBCUT SCH ×2 (08:15→21:05)
[2021-02-15] MEDS: CLONIDINE HCL 0.1MG/24HR PATCH TD SCH (13:12)
[2021-02-15] MEDS: HYDRALAZINE 20MG/ML VIAL IV PRN (23:30)
[2021-02-16] VITALS (34 sets, daily range): BP systolic 108–169; BP diastolic 76–114
[2021-02-16] MEDS: IPRATROPIUM/ALBUTEROL 0.5-3(2.5)MG/3ML NEB HHN SCH ×4 (01:58→19:53)
[2021-02-16 05:43] LABS: CHLORIDE 94 mEq/L (98-107)
[2021-02-16 06:00] LABS: BASOPHILS % 0.5 % (0.0-2.0); EOSINOPHILS % 0.6 % (0.0-5.0); HEMATOCRIT. 27.9 % (42.0-52.0); HEMOGLOBIN. 9.2 g/dL (14.0-18.0); LYMPHOCYTES % 8.6 % (20.0-50.0); MEAN CORPUSCULAR VOLUME 90.5 fL (80.0-94.0); MEAN PLATELET VOLUME 6.7 fl (7.4-10.4); MONOCYTES % 11.1 % (2.0-8.0); NEUTROPHILS % 79.2 % (40.0-76.0); PLATELET 383 x1000/uL (130-400); RED BLOOD CELL COUNT 3.08 mill/uL (4.7-6.1); RED CELL DISTRIBUTION WIDTH 16.9 % (11.6-14.6)
[2021-02-16] MEDS: FOLIC ACID 1MG TABLET PO SCH (08:13)
[2021-02-16] MEDS: THIAMINE HCL 100MG TABLET PO SCH (08:13)
[2021-02-16] MEDS: LEVETIRACETAM 500MG TABLET PO SCH ×2 (08:13→20:37)
[2021-02-16] MEDS: AMLODIPINE 5MG TABLET PO SCH ×2 (08:13→20:38)
[2021-02-16] MEDS: MULTIVITAMINS,THER W-MINERALS TABLET PO SCH (08:13)
[2021-02-16] MEDS: NICOTINE 14MG PATCH TD SCH (08:13)
[2021-02-16] MEDS: HYDRALAZINE HCL 25MG TABLET PO SCH ×2 (08:14→20:38)
[2021-02-16] MEDS: ENOXAPARIN 60MG/0.6ML SYR SUBCUT SCH ×2 (08:15→20:39)
[2021-02-16] MEDS: FAMOTIDINE 20MG/2ML VIAL IV SCH ×2 (08:15→20:37)
[2021-02-16] MEDS ORDERED: FUROSEMIDE 40MG/4ML VIAL IVP SCH (11:00)
[2021-02-17] VITALS (51 sets, daily range): BP systolic 104–133; BP diastolic 68–94
[2021-02-17] MEDS: IPRATROPIUM/ALBUTEROL 0.5-3(2.5)MG/3ML NEB HHN SCH ×4 (02:09→20:48)
[2021-02-17 05:25] LABS: HEMATOCRIT. 27.9 % (42.0-52.0); HEMOGLOBIN. 9.3 g/dL (14.0-18.0); MEAN CORPUSCULAR HEMOGLOBIN 29.7 pg (28.0-32.0); MEAN CORPUSCULAR VOLUME 89.3 fL (80.0-94.0); MEAN PLATELET VOLUME 6.6 fl (7.4-10.4); PLATELET 390 x1000/uL (130-400); RED BLOOD CELL COUNT 3.12 mill/uL (4.7-6.1); RED CELL DISTRIBUTION WIDTH 16.8 % (11.6-14.6)
[2021-02-17 05:29] LABS: CHLORIDE 91 mEq/L (98-107)
[2021-02-17 07:38] LABS: BG CARBOXYHEMOGLOBIN 0.2 % (0.5-1.5); BG DEOXYHEMOGLOBIN 1.7 % (0.0-5.0); BG FRACTION INSPIRED OXYGEN 40; BG HCO3 ACT 30.6 mmol/L (22.0-26.0); BG METHEMOGLOBIN 0.7 % (0.0-1.5); BG OXYGEN SATURATION 98.3 % (92.0-98.5); BG OXYHEMOGLOBIN 97.4 % (94.0-97.0); BG PCO2 45.1 mmHg (35.0-45.0); BG PO2 137.5 mmHg (75.0-100.0); BG SAMPLE SITE RIGHT RADIAL; BG VENT MODE VENT - AC
[2021-02-17] MEDS: FOLIC ACID 1MG TABLET PO SCH (08:49)
[2021-02-17] MEDS: MULTIVITAMINS,THER W-MINERALS TABLET PO SCH (08:49)
[2021-02-17] MEDS: LEVETIRACETAM 500MG TABLET PO SCH ×2 (08:49→20:37)
[2021-02-17] MEDS: NICOTINE 14MG PATCH TD SCH (08:49)
[2021-02-17] MEDS: FAMOTIDINE 20MG/2ML VIAL IV SCH ×2 (08:49→20:37)
[2021-02-17] MEDS: THIAMINE HCL 100MG TABLET PO SCH (08:49)
[2021-02-17] MEDS: AMLODIPINE 5MG TABLET PO SCH ×2 (08:51→20:46)
[2021-02-17] MEDS: ENOXAPARIN 60MG/0.6ML SYR SUBCUT SCH ×2 (08:51→20:39)
[2021-02-17] MEDS: HYDRALAZINE HCL 25MG TABLET PO SCH ×2 (08:52→20:46)
[2021-02-17] MEDS ORDERED: DOPAMINE HCL IV PRN (16:00)
[2021-02-17] MEDS ORDERED: SODIUM CHLORIDE 0.9% IV PRN (16:00)
[2021-02-17] MEDS ORDERED: NOREPINEPHRINE 32 MG in SODIUM CHLORIDE 0.9% 218 ML IV PRN (16:00)
[2021-02-17] MEDS ORDERED: PHENYLEPHRINE 100 MG in SODIUM CHLORIDE 0.9% 240 ML IV PRN (16:00)
[2021-02-17] MEDS ORDERED: PROPOFOL 10MG/ML 100ML 100 ML IV PRN (16:15)
[2021-02-17] MEDS: LACTULOSE 20G/30ML UDC PO PRN (18:35)
[2021-02-17 19:26] LABS: PLATELET ESTIMATE NORMAL
[2021-02-18] VITALS (67 sets, daily range): BP systolic 98–151; BP diastolic 68–95
[2021-02-18] MEDS: IPRATROPIUM/ALBUTEROL 0.5-3(2.5)MG/3ML NEB HHN SCH ×4 (01:54→20:20)
[2021-02-18 05:28] LABS: MEAN CORPUSCULAR HEMOGLOBIN 29.9 pg (28.0-32.0); MEAN CORPUSCULAR VOLUME 89.3 fL (80.0-94.0); MEAN PLATELET VOLUME 6.7 fl (7.4-10.4); PLATELET 427 x1000/uL (130-400); RED BLOOD CELL COUNT 3.02 mill/uL (4.7-6.1); RED CELL DISTRIBUTION WIDTH 16.8 % (11.6-14.6)
[2021-02-18 05:38] LABS: CHLORIDE 93 mEq/L (98-107)
[2021-02-18 05:43] LABS: PHOSPHORUS 3.1 mg/dL (2.5-4.9)
[2021-02-18] MEDS: FAMOTIDINE 20MG/2ML VIAL IV SCH ×2 (08:06→21:24)
[2021-02-18] MEDS: THIAMINE HCL 100MG TABLET PO SCH (08:06)
[2021-02-18] MEDS: LACTULOSE 20G/30ML UDC PO PRN (08:06)
[2021-02-18] MEDS: MULTIVITAMINS,THER W-MINERALS TABLET PO SCH (08:07)
[2021-02-18] MEDS: LEVETIRACETAM 500MG TABLET PO SCH ×2 (08:07→21:24)
[2021-02-18] MEDS: NICOTINE 14MG PATCH TD SCH (08:07)
[2021-02-18] MEDS: FOLIC ACID 1MG TABLET PO SCH (08:07)
[2021-02-18] MEDS: HYDRALAZINE HCL 25MG TABLET PO SCH ×2 (08:08→21:00)
[2021-02-18] MEDS: ENOXAPARIN 60MG/0.6ML SYR SUBCUT SCH ×2 (08:08→21:24)
[2021-02-18] MEDS: AMLODIPINE 5MG TABLET PO SCH ×2 (08:09→21:00)
[2021-02-18 09:43] LABS: BG BASE EXCESS 7.8 mmol/L (-2.0-2.0); BG CARBOXYHEMOGLOBIN 0.3 % (0.5-1.5); BG DEOXYHEMOGLOBIN 3.7 % (0.0-5.0); BG HCO3 ACT 32.5 mmol/L (22.0-26.0); BG METHEMOGLOBIN 0.2 % (0.0-1.5); BG OXYGEN SATURATION 96.3 % (92.0-98.5); BG OXYHEMOGLOBIN 95.8 % (94.0-97.0); BG PCO2 46.8 mmHg (35.0-45.0); BG PO2 84.1 mmHg (75.0-100.0); BG SAMPLE SITE RIGHT BRACHIAL; BG TOTAL HEMOGLOBIN 10.2 g/dL (12.0-18.0); BG VENT MODE VENT - AC
[2021-02-18 22:33] LABS: PLATELET ESTIMATE INCREASED
[2021-02-19] VITALS (57 sets, daily range): BP systolic 87–170; BP diastolic 62–110
[2021-02-19] MEDS: IPRATROPIUM/ALBUTEROL 0.5-3(2.5)MG/3ML NEB HHN SCH ×4 (01:47→20:04)
[2021-02-19] MEDS: HYDRALAZINE 20MG/ML VIAL IV PRN (05:50)
[2021-02-19 05:55] LABS: CHLORIDE 92 mEq/L (98-107)
[2021-02-19 06:02] LABS: PHOSPHORUS 2.2 mg/dL (2.5-4.9)
[2021-02-19 06:49] LABS: HEMATOCRIT. 26.2 % (42.0-52.0); HEMOGLOBIN. 8.8 g/dL (14.0-18.0); MEAN CORPUSCULAR HEMOGLOBIN 30.1 pg (28.0-32.0); MEAN CORPUSCULAR VOLUME 89.4 fL (80.0-94.0); MEAN PLATELET VOLUME 7.1 fl (7.4-10.4); PLATELET 458 x1000/uL (130-400); RED BLOOD CELL COUNT 2.93 mill/uL (4.7-6.1); RED CELL DISTRIBUTION WIDTH 16.8 % (11.6-14.6)
[2021-02-19] MEDS: FOLIC ACID 1MG TABLET PO SCH (08:14)
[2021-02-19] MEDS: THIAMINE HCL 100MG TABLET PO SCH (08:14)
[2021-02-19] MEDS: LEVETIRACETAM 500MG TABLET PO SCH ×2 (08:14→20:05)
[2021-02-19] MEDS: MULTIVITAMINS,THER W-MINERALS TABLET PO SCH (08:15)
[2021-02-19] MEDS: AMLODIPINE 5MG TABLET PO SCH ×2 (08:15→20:01)
[2021-02-19] MEDS: LACTULOSE 20G/30ML UDC PO PRN (08:16)
[2021-02-19] MEDS: ENOXAPARIN 60MG/0.6ML SYR SUBCUT SCH ×2 (08:16→20:06)
[2021-02-19] MEDS: FAMOTIDINE 20MG/2ML VIAL IV SCH ×2 (08:16→20:05)
[2021-02-19] MEDS: NICOTINE 14MG PATCH TD SCH (08:17)
[2021-02-19] MEDS: HYDRALAZINE HCL 25MG TABLET PO SCH ×2 (08:19→20:00)
[2021-02-19 11:50] LABS: PLATELET ESTIMATE INCREASED
[2021-02-20] VITALS (81 sets, daily range): BP systolic 94–133; BP diastolic 56–99
[2021-02-20] MEDS: IPRATROPIUM/ALBUTEROL 0.5-3(2.5)MG/3ML NEB HHN SCH ×4 (02:05→20:31)
[2021-02-20 05:55] LABS: HEMATOCRIT. 24.8 % (42.0-52.0); HEMOGLOBIN. 8.3 g/dL (14.0-18.0); MEAN CORPUSCULAR HEMOGLOBIN 29.9 pg (28.0-32.0); MEAN CORPUSCULAR VOLUME 89.4 fL (80.0-94.0); MEAN PLATELET VOLUME 6.8 fl (7.4-10.4); PLATELET 491 x1000/uL (130-400); RED BLOOD CELL COUNT 2.78 mill/uL (4.7-6.1); RED CELL DISTRIBUTION WIDTH 16.5 % (11.6-14.6)
[2021-02-20 06:00] LABS: CHLORIDE 95 mEq/L (98-107)
[2021-02-20 08:05] LABS: BG BASE EXCESS 7.3 mmol/L (-2.0-2.0); BG CARBOXYHEMOGLOBIN 0.3 % (0.5-1.5); BG DEOXYHEMOGLOBIN 1.5 % (0.0-5.0); BG FRACTION INSPIRED OXYGEN 30; BG HCO3 ACT 31.9 mmol/L (22.0-26.0); BG METHEMOGLOBIN 0.3 % (0.0-1.5); BG OXYGEN SATURATION 98.5 % (92.0-98.5); BG OXYHEMOGLOBIN 97.9 % (94.0-97.0); BG PCO2 45.8 mmHg (35.0-45.0); BG PH 7.461 (7.350-7.450); BG PO2 120.4 mmHg (75.0-100.0); BG SAMPLE SITE RIGHT RADIAL; BG TOTAL HEMOGLOBIN 9.1 g/dL (12.0-18.0); BG VENT MODE VENT - AC
[2021-02-20 08:11] LABS: PLATELET ESTIMATE INCREASED
[2021-02-20] MEDS: LEVETIRACETAM 500MG TABLET PO SCH ×2 (08:42→20:07)
[2021-02-20] MEDS: FAMOTIDINE 20MG/2ML VIAL IV SCH ×2 (08:42→20:07)
[2021-02-20] MEDS: ENOXAPARIN 60MG/0.6ML SYR SUBCUT SCH ×2 (08:42→20:07)
[2021-02-20] MEDS: MULTIVITAMINS,THER W-MINERALS TABLET PO SCH (08:42)
[2021-02-20] MEDS: FOLIC ACID 1MG TABLET PO SCH (08:42)
[2021-02-20] MEDS: THIAMINE HCL 100MG TABLET PO SCH (08:42)
[2021-02-20] MEDS: NICOTINE 14MG PATCH TD SCH (08:43)
[2021-02-20] MEDS: AMLODIPINE 5MG TABLET PO SCH ×2 (09:00→20:07)
[2021-02-20] MEDS ORDERED: POTASSIUM-SODIUM PHOSPHATE POWDER PACKET PO SCH (09:00)
[2021-02-20] MEDS: LACTULOSE 20G/30ML UDC PO PRN (12:43)
[2021-02-21] VITALS (84 sets, daily range): BP systolic 85–135; BP diastolic 59–91
[2021-02-21] MEDS: IPRATROPIUM/ALBUTEROL 0.5-3(2.5)MG/3ML NEB HHN SCH ×4 (00:27→20:29)
[2021-02-21 06:01] LABS: CHLORIDE 96 mEq/L (98-107)
[2021-02-21 06:03] LABS: HEMATOCRIT. 22.2 % (42.0-52.0); HEMOGLOBIN. 7.5 g/dL (14.0-18.0); MEAN PLATELET VOLUME 6.5 fl (7.4-10.4); PLATELET 536 x1000/uL (130-400); RED BLOOD CELL COUNT 2.49 mill/uL (4.7-6.1); RED CELL DISTRIBUTION WIDTH 16.6 % (11.6-14.6)
[2021-02-21 06:07] LABS: PHOSPHORUS 3.1 mg/dL (2.5-4.9)
[2021-02-21 07:24] LABS: BG BASE EXCESS 7.4 mmol/L (-2.0-2.0); BG CARBOXYHEMOGLOBIN 0.3 % (0.5-1.5); BG DEOXYHEMOGLOBIN 1.8 % (0.0-5.0); BG FRACTION INSPIRED OXYGEN 30; BG HCO3 ACT 31.2 mmol/L (22.0-26.0); BG METHEMOGLOBIN 0.3 % (0.0-1.5); BG OXYGEN SATURATION 98.2 % (92.0-98.5); BG OXYHEMOGLOBIN 97.6 % (94.0-97.0); BG PCO2 40.7 mmHg (35.0-45.0); BG PH 7.502 (7.350-7.450); BG PO2 104.1 mmHg (75.0-100.0); BG SAMPLE SITE RIGHT RADIAL; BG TOTAL HEMOGLOBIN 8.1 g/dL (12.0-18.0); BG VENT MODE VENT - AC
[2021-02-21] MEDS: ENOXAPARIN 60MG/0.6ML SYR SUBCUT SCH ×2 (08:17→21:42)
[2021-02-21] MEDS: FAMOTIDINE 20MG/2ML VIAL IV SCH ×2 (08:18→21:41)
[2021-02-21] MEDS: NICOTINE 14MG PATCH TD SCH (08:18)
[2021-02-21] MEDS: MULTIVITAMINS,THER W-MINERALS TABLET PO SCH (08:18)
[2021-02-21] MEDS: LEVETIRACETAM 500MG TABLET PO SCH ×2 (08:19→21:41)
[2021-02-21] MEDS: FOLIC ACID 1MG TABLET PO SCH (08:20)
[2021-02-21] MEDS: THIAMINE HCL 100MG TABLET PO SCH (08:20)
[2021-02-21] MEDS: AMLODIPINE 5MG TABLET PO SCH ×2 (08:20→21:00)
[2021-02-21 10:14] LABS: PLATELET ESTIMATE INCREASED
[2021-02-22] VITALS (59 sets, daily range): BP systolic 86–130; BP diastolic 61–84
[2021-02-22] MEDS: IPRATROPIUM/ALBUTEROL 0.5-3(2.5)MG/3ML NEB HHN SCH ×4 (01:12→20:20)
[2021-02-22] MEDS: MULTIVITAMINS,THER W-MINERALS TABLET PO SCH (08:17)
[2021-02-22] MEDS: THIAMINE HCL 100MG TABLET PO SCH (08:18)
[2021-02-22] MEDS: FAMOTIDINE 20MG/2ML VIAL IV SCH ×2 (08:18→20:37)
[2021-02-22] MEDS: LEVETIRACETAM 500MG TABLET PO SCH ×2 (08:18→20:39)
[2021-02-22] MEDS: FOLIC ACID 1MG TABLET PO SCH (08:18)
[2021-02-22] MEDS: NICOTINE 14MG PATCH TD SCH (08:18)
[2021-02-22] MEDS: AMLODIPINE 5MG TABLET PO SCH ×2 (08:20→20:38)
[2021-02-22] MEDS: ENOXAPARIN 60MG/0.6ML SYR SUBCUT SCH (08:20)
[2021-02-23] VITALS (37 sets, daily range): BP systolic 101–131; BP diastolic 58–88
[2021-02-23] MEDS: IPRATROPIUM/ALBUTEROL 0.5-3(2.5)MG/3ML NEB HHN SCH ×5 (02:10→20:47)
[2021-02-23 06:01] LABS: CHLORIDE 100 mEq/L (98-107)
[2021-02-23 06:10] LABS: PHOSPHORUS 3.7 mg/dL (2.5-4.9)
[2021-02-23 06:35] LABS: HEMATOCRIT. 22.8 % (42.0-52.0); HEMOGLOBIN. 7.5 g/dL (14.0-18.0); MEAN CORPUSCULAR HEMOGLOBIN 29.6 pg (28.0-32.0); MEAN CORPUSCULAR VOLUME 89.8 fL (80.0-94.0); MEAN PLATELET VOLUME 6.9 fl (7.4-10.4); PLATELET 663 x1000/uL (130-400); RED BLOOD CELL COUNT 2.54 mill/uL (4.7-6.1); RED CELL DISTRIBUTION WIDTH 17.4 % (11.6-14.6)
[2021-02-23] MEDS: MULTIVITAMINS,THER W-MINERALS TABLET PO SCH (09:00)
[2021-02-23] MEDS: AMLODIPINE 5MG TABLET PO SCH ×2 (09:00→20:08)
[2021-02-23] MEDS: THIAMINE HCL 100MG TABLET PO SCH (09:00)
[2021-02-23] MEDS: FOLIC ACID 1MG TABLET PO SCH (09:00)
[2021-02-23 09:10] LABS: BG BASE EXCESS 7.4 mmol/L (-2.0-2.0); BG DEOXYHEMOGLOBIN 2.7 % (0.0-5.0); BG FRACTION INSPIRED OXYGEN 40; BG METHEMOGLOBIN 0.3 % (0.0-1.5); BG OXYGEN SATURATION 97.3 % (92.0-98.5); BG PCO2 39.7 mmHg (35.0-45.0); BG PO2 94.1 mmHg (75.0-100.0); BG SAMPLE SITE RIGHT RADIAL; BG TOTAL HEMOGLOBIN 8.3 g/dL (12.0-18.0); BG VENT MODE VENT - AC
[2021-02-23] MEDS: FAMOTIDINE 20MG/2ML VIAL IV SCH ×2 (09:16→21:06)
[2021-02-23] MEDS: NICOTINE 14MG PATCH TD SCH (09:17)
[2021-02-23] MEDS ORDERED: LIDOCAINE HCL/EPINEPHRINE 1%-EPI 1:100,000 20 ML VIAL ONE ×2 (12:19→12:41)
[2021-02-23] MEDS ORDERED: BACITRACIN 15GM TUBE TOP ONE (12:19)
[2021-02-23] MEDS ORDERED: GENTAMICIN SULF 40MG/ML 2ML VIAL ONE (12:19)
[2021-02-23] MEDS ORDERED: THROMBIN (BOVINE) 5000 UNITS/VIAL TOP ONE (12:19)
[2021-02-23] MEDS: ACETYLCYSTEINE 100MG/ML 10% VIAL 4ML INH SCH ×3 (13:01→20:48)
[2021-02-23] MEDS ORDERED: MANNITOL 20% 0 ML IV ONE (13:38)
[2021-02-23] MEDS ORDERED: FENTANYL CITRATE/PF 50MCG/ML 2ML VIAL ONE (13:51)
[2021-02-23] MEDS ORDERED: CEFAZOLIN SODIUM 1000MG/VIAL ONE (14:10)
[2021-02-23] MEDS ORDERED: LABETALOL HCL 5MG/ML VIAL 20ML IV ONE (14:13)
[2021-02-23 14:34] LABS: PLATELET ESTIMATE INCREASED
[2021-02-23] MEDS ORDERED: VECURONIUM BROMIDE 10 MG/VIAL IV ONE (15:12)
[2021-02-23] MEDS ORDERED: GLYCOPYRROLATE 0.2 MG/ML 2ML VIAL ONE (15:12)
[2021-02-23] MEDS ORDERED: NEOSTIGMINE METHYLSULFATE 1MG/ML 10 ML VIAL ONE (15:12)
[2021-02-23] MEDS ORDERED: LEVETIRACETAM 500 MG in SODIUM CHLORIDE 0.9% 100 ML IV SCH (16:15)
[2021-02-23] MEDS ORDERED: NICARDIPINE 100 MG in SODIUM CHLORIDE 0.9% 60 ML IV PRN (16:15)
[2021-02-23] MEDS ORDERED: MORPHINE SULFATE 2 MG/ML CPJ (NOT FOR IM USE) IV PRN (16:15)
[2021-02-23 16:24] LABS: BG BASE EXCESS 6.1 mmol/L (-2.0-2.0); BG CARBOXYHEMOGLOBIN 0.3 % (0.5-1.5); BG FRACTION INSPIRED OXYGEN 40; BG HCO3 ACT 29.4 mmol/L (22.0-26.0); BG METHEMOGLOBIN 0.7 % (0.0-1.5); BG OXYGEN SATURATION 94.9 % (92.0-98.5); BG PCO2 36.9 mmHg (35.0-45.0); BG PH 7.519 (7.350-7.450); BG PO2 73.3 mmHg (75.0-100.0); BG SAMPLE SITE ALINE; BG TOTAL HEMOGLOBIN 7.2 g/dL (12.0-18.0); BG TOTAL RESPIRATORY RATE 12 b/min; BG VENT MODE VENT - AC
[2021-02-23] MEDS: DEXT 5%/LACTATED RINGERS 1,000 ML IV SCH (17:09)
[2021-02-23] MEDS: LEVETIRACETAM 500MG PREMIX 100 ML IV SCH (18:06)
[2021-02-23] MEDS: CEFAZOLIN 1000MG PREMIX 50 ML IV SCH (21:06)
[2021-02-23] MEDS ORDERED: CEFAZOLIN SODIUM 1000MG/VIAL IV SCH (22:00)
[2021-02-24] VITALS (96 sets, daily range): BP systolic 85–162; BP diastolic 43–108
[2021-02-24] MEDS: IPRATROPIUM/ALBUTEROL 0.5-3(2.5)MG/3ML NEB HHN SCH ×5 (00:15→20:22)
[2021-02-24] MEDS: LEVETIRACETAM 500MG PREMIX 100 ML IV SCH ×2 (04:18→17:11)
[2021-02-24 04:45] LABS: HEMOGLOBIN. 7.3 g/dL (14.0-18.0); MEAN CORPUSCULAR HEMOGLOBIN 29.5 pg (28.0-32.0); MEAN CORPUSCULAR VOLUME 88.7 fL (80.0-94.0); MEAN PLATELET VOLUME 6.5 fl (7.4-10.4); PLATELET 652 x1000/uL (130-400); RED BLOOD CELL COUNT 2.48 mill/uL (4.7-6.1); RED CELL DISTRIBUTION WIDTH 16.5 % (11.6-14.6)
[2021-02-24 05:01] LABS: CHLORIDE 103 mEq/L (98-107)
[2021-02-24 05:07] LABS: PHOSPHORUS 3.7 mg/dL (2.5-4.9)
[2021-02-24] MEDS: CEFAZOLIN 1000MG PREMIX 50 ML IV SCH ×3 (05:34→21:50)
[2021-02-24 07:33] LABS: PLATELET ESTIMATE INCREASED
[2021-02-24] MEDS: ACETYLCYSTEINE 100MG/ML 10% VIAL 4ML INH SCH ×2 (08:01→16:30)
[2021-02-24] MEDS: FOLIC ACID 1MG TABLET PO SCH (09:05)
[2021-02-24] MEDS: MULTIVITAMINS,THER W-MINERALS TABLET PO SCH (09:05)
[2021-02-24] MEDS: THIAMINE HCL 100MG TABLET PO SCH (09:05)
[2021-02-24] MEDS: FAMOTIDINE 20MG/2ML VIAL IV SCH ×2 (09:05→21:50)
[2021-02-24] MEDS: DEXT 5%/LACTATED RINGERS 1,000 ML IV SCH (09:05)
[2021-02-24] MEDS: AMLODIPINE 5MG TABLET PO SCH ×2 (09:06→21:00)
[2021-02-24] MEDS: NICOTINE 14MG PATCH TD SCH (09:18)
[2021-02-24] MEDS ORDERED: MAGNESIUM 2 G PREMIX 50 ML IV ONE (09:30)
[2021-02-25] VITALS (18 sets, daily range): BP systolic 90–124; BP diastolic 60–89
[2021-02-25] MEDS: IPRATROPIUM/ALBUTEROL 0.5-3(2.5)MG/3ML NEB HHN SCH ×6 (00:09→20:34)
[2021-02-25] MEDS: ACETYLCYSTEINE 100MG/ML 10% VIAL 4ML INH SCH ×3 (00:09→16:11)
[2021-02-25] MEDS: DEXT 5%/LACTATED RINGERS 1,000 ML IV SCH ×2 (00:26→18:58)
[2021-02-25] MEDS: LEVETIRACETAM 500MG PREMIX 100 ML IV SCH ×2 (05:00→18:57)
[2021-02-25] MEDS: CEFAZOLIN 1000MG PREMIX 50 ML IV SCH ×2 (06:19→14:34)
[2021-02-25 07:53] LABS: MEAN CORPUSCULAR HEMOGLOBIN 29.8 pg (28.0-32.0); MEAN CORPUSCULAR VOLUME 89.2 fL (80.0-94.0); MEAN PLATELET VOLUME 6.4 fl (7.4-10.4); PLATELET 573 x1000/uL (130-400); RED BLOOD CELL COUNT 2.13 mill/uL (4.7-6.1); RED CELL DISTRIBUTION WIDTH 17.1 % (11.6-14.6)
[2021-02-25 08:12] LABS: CHLORIDE 105 mEq/L (98-107)
[2021-02-25] MEDS: AMLODIPINE 5MG TABLET PO SCH ×2 (09:00→21:00)
[2021-02-25 09:49] LABS: HEMOGLOBIN. 6.4 g/dL (14.0-18.0)
[2021-02-25] MEDS: NICOTINE 14MG PATCH TD SCH (10:37)
[2021-02-25] MEDS: THIAMINE HCL 100MG TABLET PO SCH (10:40)
[2021-02-25] MEDS: MULTIVITAMINS,THER W-MINERALS TABLET PO SCH (10:42)
[2021-02-25] MEDS: FOLIC ACID 1MG TABLET PO SCH (10:47)
[2021-02-25] MEDS: PANTOPRAZOLE SODIUM 40 MG/VIAL IV SCH (10:47)
[2021-02-25 14:47] LABS: PLATELET ESTIMATE INCREASED
[2021-02-26] VITALS (15 sets, daily range): BP systolic 108–137; BP diastolic 78–104
[2021-02-26] MEDS: ACETYLCYSTEINE 100MG/ML 10% VIAL 4ML INH SCH ×4 (00:17→23:39)
[2021-02-26] MEDS: IPRATROPIUM/ALBUTEROL 0.5-3(2.5)MG/3ML NEB HHN SCH ×7 (00:17→23:39)
[2021-02-26] MEDS: CEFAZOLIN 1000MG PREMIX 50 ML IV SCH (01:45)
[2021-02-26] MEDS: LEVETIRACETAM 500MG PREMIX 100 ML IV SCH ×2 (06:49→16:25)
[2021-02-26] MEDS: PANTOPRAZOLE SODIUM 40 MG/VIAL IV SCH (08:51)
[2021-02-26] MEDS: MULTIVITAMINS,THER W-MINERALS TABLET PO SCH (08:51)
[2021-02-26] MEDS: NICOTINE 14MG PATCH TD SCH (08:51)
[2021-02-26] MEDS: AMLODIPINE 5MG TABLET PO SCH ×2 (08:51→17:23)
[2021-02-26] MEDS: FOLIC ACID 1MG TABLET PO SCH (08:51)
[2021-02-26] MEDS: THIAMINE HCL 100MG TABLET PO SCH (08:52)
[2021-02-26 09:05] LABS: BG BASE EXCESS 3.7 mmol/L (-2.0-2.0); BG CARBOXYHEMOGLOBIN 0.8 % (0.5-1.5); BG DEOXYHEMOGLOBIN 2.5 % (0.0-5.0); BG FRACTION INSPIRED OXYGEN 30; BG HCO3 ACT 27.3 mmol/L (22.0-26.0); BG METHEMOGLOBIN 0.6 % (0.0-1.5); BG OXYGEN SATURATION 97.5 % (92.0-98.5); BG OXYHEMOGLOBIN 96.1 % (94.0-97.0); BG PH 7.486 (7.350-7.450); BG PO2 89.1 mmHg (75.0-100.0); BG SAMPLE SITE RIGHT RADIAL; BG TOTAL HEMOGLOBIN 7.3 g/dL (12.0-18.0); BG VENT MODE VENT - AC
[2021-02-26 10:38] LABS: HEMATOCRIT. 21.8 % (42.0-52.0); HEMOGLOBIN. 7.6 g/dL (14.0-18.0); MEAN CORPUSCULAR HEMOGLOBIN 30.3 pg (28.0-32.0); MEAN CORPUSCULAR VOLUME 86.7 fL (80.0-94.0); PLATELET 498 x1000/uL (130-400); RED BLOOD CELL COUNT 2.51 mill/uL (4.7-6.1); RED CELL DISTRIBUTION WIDTH 16.7 % (11.6-14.6)
[2021-02-26 10:47] LABS: CHLORIDE 101 mEq/L (98-107)
[2021-02-26] MEDS: DEXT 5%/LACTATED RINGERS 1,000 ML IV SCH (10:49)
[2021-02-26] MEDS ORDERED: IPRATROPIUM/ALBUTEROL 0.5-3(2.5)MG/3ML NEB HHN PRN (13:30)
[2021-02-26] MEDS ORDERED: ACETAMINOPHEN 325MG TABLET PO PRN (13:30)
[2021-02-26] MEDS ORDERED: DOCUSATE SODIUM 100MG CAPSULE PO PRN (13:30)
[2021-02-26] MEDS ORDERED: LABETALOL 5MG/ML SYR 20 MG/4 ML SYRINGE IV PRN (13:30)
[2021-02-26] MEDS ORDERED: ONDANSETRON HCL 4MG/2ML INJ IV PRN (13:30)
[2021-02-26 22:10] LABS: PLATELET ESTIMATE INCREASED
[2021-02-27] VITALS (12 sets, daily range): BP systolic 120–145; BP diastolic 82–104
[2021-02-27] MEDS: DEXT 5%/LACTATED RINGERS 1,000 ML IV SCH ×2 (02:43→20:50)
[2021-02-27] MEDS: IPRATROPIUM/ALBUTEROL 0.5-3(2.5)MG/3ML NEB HHN SCH ×5 (04:17→20:53)
[2021-02-27] MEDS: LEVETIRACETAM 500MG PREMIX 100 ML IV SCH (05:02)
[2021-02-27] MEDS: AMLODIPINE 5MG TABLET PO SCH ×2 (05:02→17:35)
[2021-02-27 05:24] LABS: CHLORIDE 100 mEq/L (98-107)
[2021-02-27 06:17] LABS: BASOPHILS % 0.3 % (0.0-2.0); EOSINOPHILS % 2.9 % (0.0-5.0); HEMATOCRIT. 21.2 % (42.0-52.0); LYMPHOCYTES % 7.6 % (20.0-50.0); MEAN CORPUSCULAR HEMOGLOBIN 28.8 pg (28.0-32.0); MEAN CORPUSCULAR VOLUME 87.6 fL (80.0-94.0); MEAN PLATELET VOLUME 6.4 fl (7.4-10.4); MONOCYTES % 6.7 % (2.0-8.0); NEUTROPHILS % 82.5 % (40.0-76.0); PLATELET 452 x1000/uL (130-400); RED BLOOD CELL COUNT 2.42 mill/uL (4.7-6.1); RED CELL DISTRIBUTION WIDTH 16.7 % (11.6-14.6)
[2021-02-27] MEDS: ACETYLCYSTEINE 100MG/ML 10% VIAL 4ML INH SCH ×3 (08:53→20:53)
[2021-02-27] MEDS: PANTOPRAZOLE SODIUM 40 MG/VIAL IV SCH (08:56)
[2021-02-27] MEDS: FOLIC ACID 1MG TABLET PO SCH (08:56)
[2021-02-27] MEDS: THIAMINE HCL 100MG TABLET PO SCH (08:56)
[2021-02-27] MEDS: MULTIVITAMINS,THER W-MINERALS TABLET PO SCH (08:56)
[2021-02-27] MEDS ORDERED: POTASSIUM CHLORIDE INJ 40 MEQ in DEXT 5% WATER 250 ML IV NR (18:30)
[2021-02-27] MEDS: LEVETIRACETAM 500MG/5ML CUP PO SCH (20:46)
[2021-02-28] VITALS (10 sets, daily range): BP systolic 132–157; BP diastolic 66–105
[2021-02-28] MEDS: IPRATROPIUM/ALBUTEROL 0.5-3(2.5)MG/3ML NEB HHN SCH ×6 (00:15→20:22)
[2021-02-28] MEDS: AMLODIPINE 5MG TABLET PO SCH ×2 (05:30→17:23)
[2021-02-28 06:58] LABS: HEMATOCRIT. 25.2 % (42.0-52.0); MEAN CORPUSCULAR HEMOGLOBIN 29.6 pg (28.0-32.0); PLATELET 491 x1000/uL (130-400); RED BLOOD CELL COUNT 2.87 mill/uL (4.7-6.1); RED CELL DISTRIBUTION WIDTH 16.8 % (11.6-14.6)
[2021-02-28 07:09] LABS: CHLORIDE 99 mEq/L (98-107)
[2021-02-28 08:17] LABS: HEMOGLOBIN. 8.5 g/dL (14.0-18.0)
[2021-02-28] MEDS: MULTIVITAMINS,THER W-MINERALS TABLET PO SCH (08:20)
[2021-02-28] MEDS: THIAMINE HCL 100MG TABLET PO SCH (08:20)
[2021-02-28] MEDS: PANTOPRAZOLE SODIUM 40 MG/VIAL IV SCH (08:20)
[2021-02-28] MEDS: FOLIC ACID 1MG TABLET PO SCH (08:20)
[2021-02-28] MEDS: LEVETIRACETAM 500MG/5ML CUP PO SCH ×2 (08:20→20:32)
[2021-02-28] MEDS: CLONIDINE 0.1MG TABLET PO PRN ×2 (08:23→18:45)
[2021-02-28] MEDS: ACETYLCYSTEINE 100MG/ML 10% VIAL 4ML INH SCH (08:29)
[2021-02-28] MEDS ORDERED: HYDRALAZINE 20MG/ML VIAL IV PRN (10:30)
[2021-02-28] MEDS ORDERED: HYDRALAZINE 20MG/ML VIAL IV SCH (12:00)
[2021-02-28] MEDS: DEXT 5%/LACTATED RINGERS 1,000 ML IV SCH (13:28)
[2021-02-28] MEDS ORDERED: LABETALOL 5MG/ML SYR 20 MG/4 ML SYRINGE IV PRN (14:00)
[2021-03-01] VITALS (12 sets, daily range): BP systolic 87–137; BP diastolic 65–97
[2021-03-01] MEDS: IPRATROPIUM/ALBUTEROL 0.5-3(2.5)MG/3ML NEB HHN SCH ×6 (00:38→20:15)
[2021-03-01 06:26] LABS: CHLORIDE 95 mEq/L (98-107)
[2021-03-01 06:30] LABS: HEMATOCRIT. 25.6 % (42.0-52.0); HEMOGLOBIN. 8.9 g/dL (14.0-18.0); MEAN CORPUSCULAR HEMOGLOBIN 29.6 pg (28.0-32.0); MEAN PLATELET VOLUME 6.3 fl (7.4-10.4); PLATELET 440 x1000/uL (130-400); RED BLOOD CELL COUNT 3.01 mill/uL (4.7-6.1); RED CELL DISTRIBUTION WIDTH 16.8 % (11.6-14.6)
[2021-03-01] MEDS: DEXT 5%/LACTATED RINGERS 1,000 ML IV SCH ×2 (06:33→18:04)
[2021-03-01] MEDS: AMLODIPINE 5MG TABLET PO SCH ×2 (06:33→18:00)
[2021-03-01] MEDS: PANTOPRAZOLE SODIUM 40 MG/VIAL IV SCH (08:46)
[2021-03-01] MEDS: LEVETIRACETAM 500MG/5ML CUP PO SCH ×2 (08:46→20:18)
[2021-03-01] MEDS: THIAMINE HCL 100MG TABLET PO SCH (08:47)
[2021-03-01] MEDS: FOLIC ACID 1MG TABLET PO SCH (08:47)
[2021-03-01] MEDS: MULTIVITAMINS,THER W-MINERALS TABLET PO SCH (08:47)
[2021-03-01 11:52] LABS: PLATELET ESTIMATE INCREASED
[2021-03-01 16:46] LABS: BG CARBOXYHEMOGLOBIN 0.1 % (0.5-1.5); BG DEOXYHEMOGLOBIN 0.7 % (0.0-5.0); BG FRACTION INSPIRED OXYGEN 90; BG HCO3 ACT 32.5 mmol/L (22.0-26.0); BG METHEMOGLOBIN 0.7 % (0.0-1.5); BG OXYGEN SATURATION 99.3 % (92.0-98.5); BG OXYHEMOGLOBIN 98.5 % (94.0-97.0); BG PH 7.414 (7.350-7.450); BG PO2 183.8 mmHg (75.0-100.0); BG SAMPLE SITE LEFT RADIAL; BG TOTAL HEMOGLOBIN 8.7 g/dL (12.0-18.0); BG VENT MODE VENT - AC
[2021-03-01] MEDS: CEFEPIME 1,000 MG in DEXTROSE 5% WATER 50 ML IV SCH (18:05)
[2021-03-01] MEDS ORDERED: CEFEPIME HCL 1000MG/VIAL INJ IM SCH (21:00)
[2021-03-01 22:59] LABS: PLATELET ESTIMATE INCREASED
[2021-03-02] VITALS (12 sets, daily range): BP systolic 88–107; BP diastolic 48–79
[2021-03-02] MEDS: IPRATROPIUM/ALBUTEROL 0.5-3(2.5)MG/3ML NEB HHN SCH ×6 (00:17→20:10)
[2021-03-02] MEDS: AMLODIPINE 5MG TABLET PO SCH ×2 (05:38→18:00)
[2021-03-02] MEDS: CEFEPIME 1,000 MG in DEXTROSE 5% WATER 50 ML IV SCH ×2 (05:38→18:08)
[2021-03-02] MEDS: PANTOPRAZOLE SODIUM 40 MG/VIAL IV SCH (08:54)
[2021-03-02] MEDS: LEVETIRACETAM 500MG/5ML CUP PO SCH ×2 (08:54→20:18)
[2021-03-02] MEDS: THIAMINE HCL 100MG TABLET PO SCH (08:54)
[2021-03-02] MEDS: FOLIC ACID 1MG TABLET PO SCH (08:54)
[2021-03-02] MEDS: MULTIVITAMINS,THER W-MINERALS TABLET PO SCH (08:54)
[2021-03-02 17:31] LABS: BASOPHILS % 0.5 % (0.0-2.0); EOSINOPHILS % 1.5 % (0.0-5.0); HEMATOCRIT. 23.5 % (42.0-52.0); HEMOGLOBIN. 8.2 g/dL (14.0-18.0); LYMPHOCYTES % 8.7 % (20.0-50.0); MEAN CORPUSCULAR HEMOGLOBIN 30.1 pg (28.0-32.0); MEAN PLATELET VOLUME 6.6 fl (7.4-10.4); MONOCYTES % 7.1 % (2.0-8.0); NEUTROPHILS % 82.2 % (40.0-76.0); PLATELET 438 x1000/uL (130-400); RED BLOOD CELL COUNT 2.74 mill/uL (4.7-6.1); RED CELL DISTRIBUTION WIDTH 16.9 % (11.6-14.6)
[2021-03-02 17:43] LABS: CHLORIDE 106 mEq/L (98-107)
[2021-03-02] MEDS: DEXT 5%/LACTATED RINGERS 1,000 ML IV SCH (18:08)
[2021-03-03] VITALS (12 sets, daily range): BP systolic 73–103; BP diastolic 42–70
[2021-03-03] MEDS: IPRATROPIUM/ALBUTEROL 0.5-3(2.5)MG/3ML NEB HHN SCH ×6 (00:10→20:25)
[2021-03-03] MEDS: AMLODIPINE 5MG TABLET PO SCH (05:08)
[2021-03-03] MEDS: SODIUM CHLORIDE 0.9% 1000ML BAG (SEPSIS BOLUS) IV PRN ×2 (05:55→06:57)
[2021-03-03] MEDS: CEFEPIME 1,000 MG in DEXTROSE 5% WATER 50 ML IV SCH (06:47)
[2021-03-03 06:54] LABS: HEMATOCRIT. 22.6 % (42.0-52.0); HEMOGLOBIN. 7.4 g/dL (14.0-18.0); MEAN CORPUSCULAR HEMOGLOBIN 29.2 pg (28.0-32.0); MEAN CORPUSCULAR VOLUME 88.6 fL (80.0-94.0); MEAN PLATELET VOLUME 6.8 fl (7.4-10.4); PLATELET 348 x1000/uL (130-400); RED BLOOD CELL COUNT 2.55 mill/uL (4.7-6.1); RED CELL DISTRIBUTION WIDTH 16.9 % (11.6-14.6)
[2021-03-03 07:08] LABS: CHLORIDE 108 mEq/L (98-107)
[2021-03-03] MEDS: ACETYLCYSTEINE 100MG/ML 10% VIAL 4ML INH SCH ×2 (07:40→16:16)
[2021-03-03] MEDS: DEXT 5%/LACTATED RINGERS 1,000 ML IV SCH (08:10)
[2021-03-03] MEDS: PANTOPRAZOLE SODIUM 40 MG/VIAL IV SCH (08:19)
[2021-03-03] MEDS: MULTIVITAMINS,THER W-MINERALS TABLET PO SCH (08:43)
[2021-03-03] MEDS: THIAMINE HCL 100MG TABLET PO SCH (08:43)
[2021-03-03] MEDS: LEVETIRACETAM 500MG/5ML CUP PO SCH ×2 (08:43→21:50)
[2021-03-03] MEDS: FOLIC ACID 1MG TABLET PO SCH (08:43)
[2021-03-03 09:12] LABS: BG BASE EXCESS 7.3 mmol/L (-2.0-2.0); BG CARBOXYHEMOGLOBIN 0.3 % (0.5-1.5); BG FRACTION INSPIRED OXYGEN 100; BG HCO3 ACT 33.6 mmol/L (22.0-26.0); BG METHEMOGLOBIN 0.5 % (0.0-1.5); BG OXYGEN SATURATION 85.9 % (92.0-98.5); BG OXYHEMOGLOBIN 85.2 % (94.0-97.0); BG PCO2 60.9 mmHg (35.0-45.0); BG PO2 53.2 mmHg (75.0-100.0); BG SAMPLE SITE LEFT RADIAL; BG VENT MODE VENT - AC
[2021-03-03] MEDS ORDERED: SODIUM CHLORIDE 0.9% 1,000 ML IV SCH ×2 (09:30)
[2021-03-03] MEDS ORDERED: MIDODRINE HCL 5MG TABLET PO SCH ×2 (09:30)
[2021-03-03] MEDS: MIDODRINE HCL 5MG TABLET PO SCH ×3 (09:36→17:18)
[2021-03-03] MEDS: DOPAMINE 400 MG PREMIX 250 ML IV SCH ×2 (09:46→18:19)
[2021-03-03] MEDS: PIPERACILLIN/TAZOBACTAM 3.375 G in DEXT 5% WATER 100 ML IV SCH ×3 (12:48→23:54)
[2021-03-03] MEDS ORDERED: PIPERACILLIN/TAZOBACTAM 3.375 G/VIAL IV SCH (14:00)
[2021-03-03] MEDS ORDERED: ALBUMIN HUMAN 12.5GM/50ML (25%) IV NR (14:30)
[2021-03-03 15:09] LABS: PLATELET ESTIMATE NORMAL
[2021-03-04] VITALS (12 sets, daily range): BP systolic 86–115; BP diastolic 55–76
[2021-03-04] MEDS: IPRATROPIUM/ALBUTEROL 0.5-3(2.5)MG/3ML NEB HHN SCH ×6 (00:51→20:45)
[2021-03-04] MEDS: ACETYLCYSTEINE 100MG/ML 10% VIAL 4ML INH SCH ×3 (00:52→16:57)
[2021-03-04] MEDS: DEXT 5%/LACTATED RINGERS 1,000 ML IV SCH ×2 (01:31→15:53)
[2021-03-04] MEDS: PIPERACILLIN/TAZOBACTAM 3.375 G in DEXT 5% WATER 100 ML IV SCH ×4 (05:20→23:23)
[2021-03-04 06:00] LABS: HEMATOCRIT. 23.4 % (42.0-52.0); HEMOGLOBIN. 7.6 g/dL (14.0-18.0); MEAN CORPUSCULAR HEMOGLOBIN 28.6 pg (28.0-32.0); MEAN CORPUSCULAR VOLUME 87.7 fL (80.0-94.0); MEAN PLATELET VOLUME 6.3 fl (7.4-10.4); PLATELET 404 x1000/uL (130-400); RED BLOOD CELL COUNT 2.67 mill/uL (4.7-6.1); RED CELL DISTRIBUTION WIDTH 17.5 % (11.6-14.6)
[2021-03-04 06:35] LABS: CHLORIDE 115 mEq/L (98-107)
[2021-03-04] MEDS: DOPAMINE 400 MG PREMIX 250 ML IV SCH ×2 (06:57→16:41)
[2021-03-04] MEDS: MULTIVITAMINS,THER W-MINERALS TABLET PO SCH (08:31)
[2021-03-04] MEDS: THIAMINE HCL 100MG TABLET PO SCH (08:31)
[2021-03-04] MEDS: PANTOPRAZOLE SODIUM 40 MG/VIAL IV SCH (08:31)
[2021-03-04] MEDS: FOLIC ACID 1MG TABLET PO SCH (08:32)
[2021-03-04] MEDS: LEVETIRACETAM 500MG/5ML CUP PO SCH ×2 (08:32→20:33)
[2021-03-04] MEDS: MIDODRINE HCL 5MG TABLET PO SCH ×3 (08:34→16:54)
[2021-03-04 17:24] LABS: BG BASE EXCESS 8.7 mmol/L (-2.0-2.0); BG CARBOXYHEMOGLOBIN 0.5 % (0.5-1.5); BG DEOXYHEMOGLOBIN 4.2 % (0.0-5.0); BG FRACTION INSPIRED OXYGEN 80; BG HCO3 ACT 33.3 mmol/L (22.0-26.0); BG METHEMOGLOBIN 0.6 % (0.0-1.5); BG OXYGEN SATURATION 95.8 % (92.0-98.5); BG OXYHEMOGLOBIN 94.7 % (94.0-97.0); BG PCO2 47.2 mmHg (35.0-45.0); BG PH 7.467 (7.350-7.450); BG PO2 76.7 mmHg (75.0-100.0); BG SAMPLE SITE LEFT BRACHIAL; BG TOTAL HEMOGLOBIN 7.8 g/dL (12.0-18.0); BG TOTAL RESPIRATORY RATE 18 b/min; BG VENT MODE VENT - AC
[2021-03-05] VITALS (7 sets, daily range): BP systolic 73–115; BP diastolic 43–78
[2021-03-05] MEDS: DOPAMINE 400 MG PREMIX 250 ML IV SCH ×2 (00:30→03:59)
[2021-03-05] MEDS: IPRATROPIUM/ALBUTEROL 0.5-3(2.5)MG/3ML NEB HHN SCH ×4 (00:39→12:12)
[2021-03-05] MEDS: ACETYLCYSTEINE 100MG/ML 10% VIAL 4ML INH SCH ×2 (00:39→08:25)
[2021-03-05] MEDS: PIPERACILLIN/TAZOBACTAM 3.375 G in DEXT 5% WATER 100 ML IV SCH (05:27)
[2021-03-05 08:24] LABS: PLATELET ESTIMATE SLIGHTLY INCREASED
[2021-03-05] MEDS: LEVETIRACETAM 500MG/5ML CUP PO SCH (09:48)
[2021-03-05] MEDS: MULTIVITAMINS,THER W-MINERALS TABLET PO SCH (09:48)
[2021-03-05] MEDS: FOLIC ACID 1MG TABLET PO SCH (09:48)
[2021-03-05] MEDS: THIAMINE HCL 100MG TABLET PO SCH (09:49)
[2021-03-05] MEDS: PANTOPRAZOLE SODIUM 40 MG/VIAL IV SCH (09:49)
[2021-03-05] MEDS: MIDODRINE HCL 5MG TABLET PO SCH (09:50)
[2021-03-05] MEDS: DEXT 5%/LACTATED RINGERS 1,000 ML IV SCH (10:20)
[2021-03-05] MEDS ORDERED: LORAZEPAM 2MG/ML CPJ IV PRN (11:15)
[2021-03-05] MEDS ORDERED: MORPHINE SULFATE 2 MG/ML CPJ (NOT FOR IM USE) IV PRN (11:15)
== END 2021-03-05 15:45 | DRG 21 ==
LOC: ER 21:01 → 5EST 01-29 00:46 → ENRESERV 01-29 02:13 → CVICU 02-07 23:15 → 5EST 02-22 15:16 → MICUNO 02-23 15:17 → 5EST 02-25 02:00
PROVIDERS: ADMIT Internal Medicine; ATTEND Internal Medicine
PROC: 5A1955Z Respiratory Ventilation, Greater than 96 Consecutive Hours (ICD-10-PCS; 2021-02-07)
PROC: 0BH17EZ Insertion of Endotracheal Airway into Trachea, Via Natural or Artificial Opening (ICD-10-PCS; 2021-02-07)
PROC: 4A10X4Z Monitoring of Central Nervous Electrical Activity, External Approach (ICD-10-PCS; 2021-02-08)
PROC: 02HV33Z Insertion of Infusion Device into Superior Vena Cava, Percutaneous Approach (ICD-10-PCS; 2021-02-08)
PROC: B548ZZA Ultrasonography of Superior Vena Cava, Guidance (ICD-10-PCS; 2021-02-08)
PROC: 009600Z Drainage of Cerebral Ventricle with Drainage Device, Open Approach (ICD-10-PCS; principal; 2021-02-23)
PROC: 00160J6 Bypass Cerebral Ventricle to Peritoneal Cavity with Synthetic Substitute, Open Approach (ICD-10-PCS; 2021-02-23)
PROC: 30233N1 Transfusion of Nonautologous Red Blood Cells into Peripheral Vein, Percutaneous Approach (ICD-10-PCS; 2021-02-25)
DX: G91.9 Hydrocephalus, unspecified (principal); J96.01 Acute respiratory failure with hypoxia; I26.99 Other pulmonary embolism without acute cor pulmonale; K72.00 Acute and subacute hepatic failure without coma; J69.0 Pneumonitis due to inhalation of food and vomit; G93.6 Cerebral edema; A41.9 Sepsis, unspecified organism; G92 Toxic encephalopathy; R65.21 Severe sepsis with septic shock; L89.156 Pressure-induced deep tissue damage of sacral region; I46.9 Cardiac arrest, cause unspecified; E22.2 Syndrome of inappropriate secretion of antidiuretic hormone; I16.0 Hypertensive urgency; E44.0 Moderate protein-calorie malnutrition; I10 Essential (primary) hypertension; E83.39 Other disorders of phosphorus metabolism; D64.9 Anemia, unspecified; Z20.822 Contact with and (suspected) exposure to COVID-19; R80.9 Proteinuria, unspecified; R56.9 Unspecified convulsions; Z66 Do not resuscitate; E87.6 Hypokalemia; L89.812 Pressure ulcer of head, stage 2; Z51.5 Encounter for palliative care; Z59.0 Homelessness; Z68.1 Body mass index [BMI] 19.9 or less, adult; Z78.1 Physical restraint status; Z99.11 Dependence on respirator [ventilator] status; E87.0 Hyperosmolality and hypernatremia; R57.0 Cardiogenic shock; B88.8 Other specified infestations
CPT/HCPCS: 36415; 36600; 70551; 71045; 71275; 76937; 80048; 80053; 80061; 80076; 80305; 80307; 80320; 80329; 81003; 82040; 82140; 82375; 82533; 82550; 82570; 82607; 82746; 82805; 82962; 83036; 83605; 83735; 83880; 83935; 84100; 84134; 84145; 84300; 84443; 84478; 84484; 84550; 85025; 85379; 86850; 86900; 86920; 87070; 87426; 92950; 93005; 93306; 94002; 94003; 94640; 94660; 97162; 97530; 99285; A6261; C1725; C1750; C9113; J0360; J0690; J0692; J1265; J1580; J1644; J1650; J1940; J1953; J2060; J2270; J2405; J2543; J2710; J3010; J3475; J3480; J3490; J7030; J7040; J7042; J7050; J7060; J7120; J7121; J7608; P9016; P9047; Q9967; A4315; G0480